=== PATIENT | female | born 1995 ===

== ENCOUNTER 2021-07-04 15:25 | Outpatient (REF) | payer OTHER, SELFPAY ==
[2021-07-04 16:01] LABS: MANUAL DIFF FLAG NO
[2021-07-04 16:06] LABS: Basophils Percent Auto 0.4 % (0-2); Eosinophils Absolute Auto 0.1 X10*3/uL (0.0-0.4); Eosinophils Percent Auto 0.9 % (0-4); Hematocrit 42.4 % (37-47); Hemoglobin 13.9 g/dl (12.0-16.0); Imm Gran Abs Auto 0.02 X10*3/uL (0.00-0.03); Imm Gran Pct Auto 0.3 % (0.0-0.4); Lymphocytes Percent Auto 29.5 % (20-40); Mean Corpuscular HGB Conc 32.8 g/dl (31.0-35.0); Mean Corpuscular Hemoglobin 26.2 pg (27.0-33.0); Mean Platelet Volume 10.2 fL (9.4-12.3); Monocytes Absolute Auto 0.6 X10*3/uL (0.1-1.2); Monocytes Percent Auto 8.8 % (2-11); Neutrophils Absolute Auto 4.1 X10*3/uL (2.0-8.3); Neutrophils Percent Auto 60.1 % (45-73); Platelet Count 339 X10*3/uL (160-400); Red Cell Distribution Width 12.7 % (11.0-16.0); White Blood Count 6.8 X10*3/uL (4.8-10.8)
[2021-07-04 16:26] LABS: Alanine Aminotransferase 6 U/L (0-31); Albumin Level 4.8 g/dL (3.5-5.0); Alkaline Phosphatase 71 U/L (39-117); Anion Gap 12 (12-20); Aspartate Amino Transferase 13 U/L (5-31); Bilirubin Total 0.8 mg/dL (0.0-1.0); Blood Urea Nitrogen 13 mg/dL (9-16); Calcium 10.2 mg/dL (8.4-10.2); Carbon Dioxide 27 mmol/L (22-29); Chloride 108 mmol/L (96-108); Cholesterol 128 mg/dL; Estimated Glomerular Filt Rate > 60; Glucose Fasting 90 mg/dL (60-99); HDL Cholesterol 43 mg/dL; LDL Cholesterol Calculated 75 mg/dl; Potassium 4.8 mmol/L (3.3-5.1); Sodium 142 mmol/L (135-145); Total Protein 7.7 g/dL (6.5-8.0); Triglycerides 54 mg/dL
[2021-07-11 04:50] LABS: Vitamin D 25-OH, D2 <4 ng/mL; Vitamin D 25-OH, D3 32 ng/mL; Vitamin D 25-OH, Total 32 ng/mL (30-100)
== END 2021-07-04 15:26 | disposition home or self-care (01) ==
LOC: HO.LAB 15:25
PROVIDERS: PCP Internal Medicine; Visit Provider Internal Medicine
DX: R63.6 Underweight (principal); E55.9 Vitamin D deficiency, unspecified; Z82.49 Family history of ischemic heart disease and other diseases of the circulatory system
CPT/HCPCS: 36415; 80053; 80061; 82306; 85025

== ENCOUNTER 2021-11-25 10:17 | Outpatient (REF) | payer OTHER, SELFPAY ==
[2021-11-25 13:26] LABS: C Reactive Protein 0.09 mg/dL (< or = 0.50)
[2021-11-28 12:46] LABS: Transglutaminase Ab IgG <1.0 U/mL; Transglutaminase IgA <1.0 U/mL
== END 2021-11-25 10:18 | disposition home or self-care (01) ==
LOC: HO.LAB 10:17
PROVIDERS: PCP Internal Medicine; Referring Provider Internal Medicine; Visit Provider Nurse Practitioner Family
DX: R10.11 Right upper quadrant pain (principal); K21.9 Gastro-esophageal reflux disease without esophagitis; K58.2 Mixed irritable bowel syndrome; R14.0 Abdominal distension (gaseous); K58.9 Irritable bowel syndrome, unspecified
CPT/HCPCS: 36415; 86140; 86364

== ENCOUNTER 2021-11-26 21:30 | Outpatient (REF) | payer OTHER, SELFPAY | END 2021-11-26 21:31 | disposition home or self-care (01) | LOC: HO.LNP 21:30 | PROVIDERS: Visit Provider Nurse Practitioner Family | DX: R10.13 Epigastric pain (principal); R19.7 Diarrhea, unspecified | CPT/HCPCS: 87338 ==

== ENCOUNTER 2021-12-27 14:26 | Outpatient (REF) | payer OTHER, SELFPAY ==
[2021-12-27 16:23] LABS: Alanine Aminotransferase < 6 U/L (0-31); Albumin Level 4.5 g/dL (3.5-5.0); Alkaline Phosphatase 76 U/L (39-117); Aspartate Amino Transferase 12 U/L (5-31); Bilirubin Direct 0.2 mg/dL (0.0-0.5); Bilirubin Total 0.4 mg/dL (0.0-1.0); Lipase 12 U/L (8-78); Total Protein 7.3 g/dL (6.5-8.0)
[2021-12-27 16:38] LABS: TSH reflex Free T4 0.59 uIU/mL (0.32-4.0)
[2021-12-27 16:45] LABS: Vitamin B12 398 pg/mL (200-900)
[2021-12-31 14:25] LABS: Vitamin D 25-OH, D2 <4 ng/mL; Vitamin D 25-OH, D3 13 ng/mL; Vitamin D 25-OH, Total 13 ng/mL (30-100)
== END 2021-12-27 14:27 | disposition home or self-care (01) ==
LOC: HO.LAB 14:26
PROVIDERS: PCP Internal Medicine; Visit Provider Nurse Practitioner Family
DX: R19.7 Diarrhea, unspecified (principal); E55.9 Vitamin D deficiency, unspecified
CPT/HCPCS: 36415; 80076; 82306; 82607; 82746; 83690; 84443

== ENCOUNTER 2021-12-30 12:33 | Outpatient (REF) | payer OTHER, SELFPAY ==
[2022-01-05 23:31] LABS: Pancreatic Elastase-1 >500 mcg/g
== END 2021-12-30 12:34 | disposition home or self-care (01) ==
LOC: HO.LNP 12:33
PROVIDERS: Visit Provider Nurse Practitioner Family
DX: R19.7 Diarrhea, unspecified (principal); K21.9 Gastro-esophageal reflux disease without esophagitis
CPT/HCPCS: 82656; 87338

== ENCOUNTER → 2022-01-06 09:02 | Outpatient (BNVA) | payer OTHER, SELFPAY | PROVIDERS: PCP Internal Medicine; Referring Provider Internal Medicine; Visit Provider Nurse Practitioner Family ==

== ENCOUNTER 2022-02-01 10:51 | Day surgery (SDC) | payer OTHER, SELFPAY ==
[2022-01-27 14:55] VITALS: BMI 21.5
--- NOTE | 2022-01-31 12:27 | HO.ANESPROP2 ---
Documented by User: Elizabeth Gonzalez NP 01/31/22 12:27 HPI - Anesthesia Eval Consult details Narrative: 26yo F for Upper Endoscopy [facility] Active Problems Active Problems: All Active Problems (Updated 07/05/21 @ 10:09 by Dulce Flores MD) GERD (gastroesophageal reflux disease) (Acute) Family history of hypertension (Acute) Underweight (Acute) Allergic rhinitis (Acute) Past Medical History Medical History Allergic rhinitis Family history of hypertension GERD (gastroesophageal reflux disease) Underweight Family History Family History Mother No problems noted. Father Asthma Maternal Grandfather Essential hypertension Social History Social History Housing: House Alcohol intake: current Alcohol intake frequency: holidays/special occasions only Alcohol type: beer, wine and hard liquor Patient Tobacco Use Status: Never used Tobacco e-Cigarette/Vaping Use: Never Used Use of substances other than those prescribed or required for medical reasons: No Are you DNR?: No Advance Directives: No Advance Directives Information Provided: Yes Patient : No ([employer] pending) service: No Current occupational status: employed Meds Allergies Allergy/AdvReac Type Severity Reaction Status Date / Time No Known Allergies Allergy Verified 01/06/22 09:08 Exam Exam Date and Time: January 31, 2022 1227 Height,Weight and Vital Signs: Height 5 ft 2 in Weight 53.524 kg Assessment and Plan Assessment Anesthesia Assessment: Chart Reviewed Documented by User: Clementina Cornejo MD 02/01/22 12:20 [facility] Past Medical History Medical History Allergic rhinitis Family history of hypertension GERD (gastroesophageal reflux disease) Underweight Family History Family History Mother No problems noted. Father Asthma Maternal Grandfather Essential hypertension Family history of problems with anesthesia: No Surgical History History of Problems with Anesthesia: No Social History Social History Housing: House Alcohol intake: current Alcohol intake frequency: holidays/special occasions only Alcohol type: beer, wine and hard liquor Patient Tobacco Use Status: Never used Tobacco e-Cigarette/Vaping Use: Never Used Use of substances other than those prescribed or required for medical reasons: No Are you DNR?: No Advance Directives: No Advance Directives Information Provided: Yes Patient : No ([employer] pending) service: No Current occupational status: employed Meds Allergies Allergy/AdvReac Type Severity Reaction Status Date / Time No Known Allergies Allergy Verified 01/06/22 09:08 Exam Airway Mallampati Class: II TM Dist: >3cm Neck ROM: Full Heart: rrr Lungs: cta Assessment and Plan Assessment Anesthesia Assessment: Anesthesia Plan Discussed and Chart Reviewed Final Anesthetic Review Family History of Problems with Anesthesia: No History of Problems with Anesthesia: No NPO: Yes ASA Class: II Final Preanesthetic Review: No Changes in Pt Med Stat, Meds/Allgs Chart Reviewed and Consent Obtained/Reviewed Patient Risk: Intermediate Procedure Risk: Intermediate Anesthetic Plan Anesthetic Plan: MAC: Disposition: Standard PACU
[2022-02-01 11:55] LABS: UPreg QC Valid YES; Urine Pregnancy NEGATIVE (NEGATIVE)
[2022-02-01 11:59] VITALS: BP 114/74; PULSE 73; RESP 16; TEMP 36.9; O2SAT 99; BMI 21.9
--- NOTE | 2022-02-01 12:16 | P.HPSUR_ITS ---
Pre-Procedural Eval Section A Date of Service: 02/01/22 Section B Chief Complaint: GERD Details of Present Illness: hx of early satiety, daily migraines and post prandial diarrhea with reflux Relevant Family History (Specify if Yes): No Relevant Social History: None Present Medications: see Short Stay Collaborative assessment Medical History: Significant History (Allergic rhinitis Family history of hypertension GERD (gastroesophageal reflux disease) Underweight) History of Previous Operations: No relevant previous surgery Allergies: Allergies Allergy/AdvReac Type Severity Reaction Status Date / Time No Known Allergies Allergy Verified 01/06/22 09:08 Review of Systems Sugical H&P ROS: Negative: Constitution, Cardiovascular, Respiratory, Neurological, Psychiatric, Hem-Onc, Allergic/Immunologic, Gastrointestinal, Genitourinary, Musculoskeletal, Integumentary, Endocrine and Eyes/Ears/Nose/Throat Exam Surgical H&P Exam: Normal: HEENT, Normal: Heart, Normal: Lungs, Normal: Extr emities, Normal: Abdomen, Normal: Skin and Normal: Neurological Plan Diagnosis/Plan: Unchanged I have reviewed the history and physical and performed a pertinent physical examination on my patient. No changes have occurred unless specified.
[2022-02-01] MEDS: Lactated Ringers 1,000 ML 100 ML IVCONT (12:20)
--- NOTE | 2022-02-01 12:25 | PM.OP ---
Brief Operative Note Date of Service: 02/01/22 Pre-op diagnosis: hx of early satiety, daily migraines and post prandial diarrhea with reflux Post-op diagnosis: same Procedure: see op note Surgeon: Jim Jin MD Anesthesia: MAC Was an Clarifier Operator used for this Procedure?: No Estimated blood loss (mL): 0 Condition: stable Disposition: PACU
--- NOTE | 2022-02-01 12:25 | W.PM.OPN ---
Operative Note Operative Note Date of Service: 02/01/22 Narrative: Procedure Description: EGD Indication: hx of early satiety, daily migraines and post prandial diarrhea with reflux Anesthesia: MAC FLEXIBLE TRANSORAL UPPER GASTROINTESTINAL ENDOSCOPY UPPER ENDOSCOPY Consent: Indications for the procedure and potential complications of bleeding, perforation, reaction to medications and missed diagnosis were discussed with the patient and informed consent was obtained. Instrument: Olympus GIF H 190 J mid size upper endoscope Monitoring: Vital signs and clinical assessment, continuous EKG monitoring, Pulse oximetry, Carbon Dioxide monitoring and blood pressure monitoring were done throughout the procedure. Procedure: The patient was placed in the left lateral decubitis position and pre-procedure medications were administered and a bite block was placed. The endoscope was inserted into the mouth and advanced under direct vision to the third part of duodenum. A careful inspection was made as the upper endoscope was withdrawn including a retroflexed examination of the proximal stomach; Findings and interventions are described below. Findings: Larynx:normal Esophagus: GE junction at 38 cm, diaphragm hiatus at 38 cm, mild esophagitis, bx taken from GEJ and random esophagus in different jars Stomach: Normal mucosa. Biopsies were obtained. Grade 2 flap valve on retroflexed examination of the cardia. There appeared to be reduced gastric movement. Duodenum: Normal bulb and descending duodenum, bx taken Intervention: Biopsies as noted above Impression/Findings: possible gastroparesis, mild esophagitis PLAN: await bx, if h pylori pos treat if neg then gastric emptying study nortriptiline may be a good option if turns out to functional dyspepsia or gastroparesis as will help her migraines as well as her sleep
[2022-02-01 13:27] VITALS: BP 98/57; PULSE 83; RESP 16; TEMP 36.6; O2SAT 95
[2022-02-01 13:42] VITALS: BP 106/72; PULSE 78; RESP 16; O2SAT 100
[2022-02-01 13:57] VITALS: BP 103/70; PULSE 73; RESP 16; TEMP 36.6; O2SAT 100
== END 2022-02-01 14:30 | disposition home or self-care (01) ==
PROVIDERS: Nurse Practitioner; PCP Internal Medicine; Visit Provider Internal Medicine Gastroenterology
PROC: 0DJ08ZZ Inspection of Upper Intestinal Tract, Via Natural or Artificial Opening Endoscopic (ICD-10-PCS; CPT 43235; principal; 2022-02-01 13:10)
DX: K21.9 Gastro-esophageal reflux disease without esophagitis (principal); R68.81 Early satiety; K20.90 Esophagitis, unspecified without bleeding; R19.7 Diarrhea, unspecified; K44.9 Diaphragmatic hernia without obstruction or gangrene; G43.909 Migraine, unspecified, not intractable, without status migrainosus
CPT/HCPCS: 43239; 81025; 88305; 88342

== ENCOUNTER → 2022-02-17 13:00 | Outpatient (BNVA) | payer OTHER, SELFPAY | PROVIDERS: PCP Internal Medicine; Referring Provider Internal Medicine; Visit Provider Nurse Practitioner Family | DX: Z13.89 Encounter for screening for other disorder (principal) ==

== ENCOUNTER 2022-02-27 08:58 | Outpatient (REF) | payer OTHER, SELFPAY ==
[2022-02-28 14:58] LABS: H Pylori Breath Test Negative (Negative)
== END 2022-02-27 08:59 | disposition home or self-care (01) ==
LOC: HO.LAB 08:58
PROVIDERS: PCP Internal Medicine; Referring Provider Internal Medicine; Visit Provider Internal Medicine Gastroenterology
DX: K21.00 Gastro-esophageal reflux disease with esophagitis, without bleeding (principal)
CPT/HCPCS: 36415; 83013

== ENCOUNTER 2022-03-13 11:01 | Emergency (ER) | payer OTHER, SELFPAY ==
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
[2022-03-13 11:08] VITALS: BP 118/70; PULSE 90
[2022-03-13 11:22] VITALS: BP 128/87; PULSE 90; RESP 18; TEMP 36.6; O2SAT 98; BMI 22.6
[2022-03-13] MEDS: Acetaminophen 325 MG TABLET 975 MG PO (11:52)
[2022-03-13] MEDS: Cyclobenzaprine HCl 10 MG TABLET PO (11:52)
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
== END 2022-03-13 14:05 | disposition home or self-care (01) ==
PROVIDERS: Emergency Provider Emergency Medicine; PCP Internal Medicine
DX: S13.4XXA Sprain of ligaments of cervical spine, initial encounter (principal); S06.0X9A Concussion with loss of consciousness of unspecified duration, initial encounter; S86.912A Strain of unspecified muscle(s) and tendon(s) at lower leg level, left leg, initial encounter; S86.911A Strain of unspecified muscle(s) and tendon(s) at lower leg level, right leg, initial encounter; S00.83XA Contusion of other part of head, initial encounter; V43.62XA Car passenger injured in collision with other type car in traffic accident, initial encounter; Y93.9 Activity, unspecified; Y92.410 Unspecified street and highway as the place of occurrence of the external cause; Y99.9 Unspecified external cause status
CPT/HCPCS: 70450; 70486; 72125; 73564; 73590; 99284

== ENCOUNTER → 2022-08-03 07:50 | Outpatient (REF) | payer OTHER, SELFPAY ==
--- NOTE | ~2022-08-03 | NM_ITS ---
EXAMINATION: IA RADIONUCLIDE SOLID FOOD GASTRIC EMPTYING 4-HOUR STUDY CLINICAL INFORMATION: Mastitis, unspecified, without bleeding. COMPARISON: None TECHNIQUE: A standard meal consisting of 4 oz of Egg Beaters brand tagged with 1000 microcuries Tc-99m Sulfur Colloid, 8 oz water and 2 slices of toast with jelly was administered orally to the patient. Images were obtained using a dual head gamma camera in the anterior and posterior projections over of the stomach immediately post ingestion and at hourly intervals up to 4 hours post ingestion. The anterior and posterior counts at each time interval were averaged using the geometric mean and expressed as percentage of the immediate post ingestion counts. FINDINGS: There is good visualization of activity in the stomach immediately post ingestion. As the study progresses, there is good clearance of activity from the stomach and visualization of progressively increasing small bowel activity. By the end of the study, there is almost no retention noted in the stomach. Retention in the stomach at each time interval was: 1 hour 59% (normal 37%-90%) 2 hours 23% (normal 30%-60%) 3 hours 5% Given the lack of radiotracer activity by 3 hours, 4 hours images were not obtained. IA/IA gastric emptying study IMPRESSION: Normal 4-hour solid food gastric emptying study.
== END ==
LOC: HO.NUCMED 07:50
PROVIDERS: Visit Provider Nurse Practitioner Family
DX: K29.70 Gastritis, unspecified, without bleeding (principal)
CPT/HCPCS: 78264; A9541

== ENCOUNTER 2023-01-18 10:39 | Outpatient (REF) | payer OTHER, SELFPAY ==
[2023-01-18 11:02] LABS: MANUAL DIFF FLAG NO
[2023-01-18 12:16] LABS: Basophils Absolute Auto 0.1 X10*3/uL (0.0-0.2); Basophils Percent Auto 0.9 % (0-2); Eosinophils Absolute Auto 0.2 X10*3/uL (0.0-0.4); Eosinophils Percent Auto 2.2 % (0-4); Hematocrit 45.6 % (37.0-47.0); Hemoglobin 14.6 g/dl (12.0-16.0); Imm Gran Abs Auto 0.01 X10*3/uL (0.00-0.03); Imm Gran Pct Auto 0.1 % (0.0-0.4); Lymphocytes Percent Auto 29.3 % (20-40); Mean Corpuscular Volume 81.3 fL (80.0-98.0); Mean Platelet Volume 10.4 fL (9.4-12.3); Monocytes Absolute Auto 0.6 X10*3/uL (0.1-1.2); Monocytes Percent Auto 8.2 % (2-11); Neutrophils Percent Auto 59.3 % (45-73); Platelet Count 376 X10*3/uL (160-400); Red Blood Count 5.61 X10*6/uL (4.20-5.50); White Blood Count 6.7 X10*3/uL (4.8-10.8)
[2023-01-18 13:01] LABS: Alanine Aminotransferase 6 U/L (0-31); Albumin Level 4.7 g/dL (3.5-5.0); Alkaline Phosphatase 80 U/L (39-117); Anion Gap 14 (12-20); Aspartate Amino Transferase 14 U/L (5-31); Bilirubin Total 0.7 mg/dL (0.0-1.0); Blood Urea Nitrogen 9 mg/dL (9-16); Calcium 9.2 mg/dL (8.4-10.2); Carbon Dioxide 27 mmol/L (22-29); Chloride 106 mmol/L (96-108); Estimated Glomerular Filt Rate > 60; Glucose Fasting 93 mg/dL (60-99); Potassium 4.7 mmol/L (3.3-5.1); Sodium 142 mmol/L (135-145); Total Protein 7.4 g/dL (6.5-8.0)
[2023-01-18 13:15] LABS: Folate 14.8 ng/mL (> or = 4.0); TSH reflex Free T4 1.21 uIU/mL (0.32-4.0); Vitamin B12 433 pg/mL (200-900); Vitamin D 25-OH Total 12.6 ng/mL (>30)
== END 2023-01-18 10:40 | disposition home or self-care (01) ==
LOC: HO.LAB 10:39
PROVIDERS: PCP Internal Medicine; Visit Provider Nurse Practitioner Family
DX: Z00.00 Encounter for general adult medical examination without abnormal findings (principal); E55.9 Vitamin D deficiency, unspecified; J45.909 Unspecified asthma, uncomplicated; K21.9 Gastro-esophageal reflux disease without esophagitis; R63.6 Underweight; J30.9 Allergic rhinitis, unspecified; Z82.49 Family history of ischemic heart disease and other diseases of the circulatory system
CPT/HCPCS: 36415; 80053; 82306; 82607; 82746; 84443; 85025

== ENCOUNTER → 2023-01-22 08:57 | Outpatient (BNVA) | payer OTHER, SELFPAY | PROVIDERS: PCP Internal Medicine; Visit Provider Nurse Practitioner Family | DX: Z13.89 Encounter for screening for other disorder (principal) ==

== ENCOUNTER → 2023-04-16 14:10 | Outpatient (BNVA) | payer OTHER, SELFPAY | PROVIDERS: PCP Internal Medicine; Referring Provider Internal Medicine; Visit Provider Nurse Practitioner Family ==

== ENCOUNTER 2023-09-18 14:04 | Outpatient (AMB) | payer OTHER, SELFPAY ==
[2023-09-18 14:07] VITALS: BP 122/76; PULSE 81; BMI 25.3
--- NOTE | 2023-09-18 14:07 | A.OFFVIS_ITS ---
Intake Vital Signs 09/18/23 14:07 Height 5 ft 1 in Weight 134 lb 0.657 oz BMI 25.3 BP 122/76 Blood Pressure Location Rt brachial Position Sitting Pulse 81 Pulse Source Pulse Oximeter Intake Visit Reasons: pt req appointment Intake Note: Pt presents to the office today for stomach pain that has been getting worse within the past month. Pt states her acid reflux is getting worse. Pt also states lately within the past week she has been having diarrhea but even before that she states she is constantly in the bathroom. Pt states it is hard for her to even lay on her stomach because of the pain. She states she has tried the low FODMAP diet and she states it helped a little but didnt make a big difference. Allergies No Known Allergies Allergy (Verified 09/18/23 14:09) HPI pt req appointment HPI Details LAST VISIT GERD (gastroesophageal reflux disease) Discussed with patient avoiding dietary triggers and late night snacking. Staying upright for minimal 3 hours after meals discussed with patient. Patient was also encouraged to eat smaller meals and more often. IBS (irritable bowel syndrome) Patient reports occasional abdominal cramping. Discussed with patient will FOD MAP diet. Patient will try to eat smaller meals. Avoid pasta and see if that is going to make a difference. Discussed with patient also the importance of emptying her bowels completely to prevent abdominal cramping and bloating. I will see patient in 6 months, sooner on as needed basis. Patient is agreeable to this plan and verbalizes understanding of instructions. She was given the opportunity to ask questions and all questions answered. ? Thank you for allowing me to participate in her care Plan Medications Refilled cholecalciferol (vitamin D3) 50 mcg PO DAILY 90 tabs 0RF R79.89 - Other specified abnormal findings of blood chemistry TODAY'S VISIT: Patient is here today for follow-up. Patient reports that she has continues to have postprandial loose stools. Patient reports abdominal bloating. Patient states that when she tried to change her diet felt some a results, patient reports that she is having loose stools, however she feels like she is not emptying completely. Occasional symptoms of constipation as well. Patient denies any melena, hematochezia, unintentional weight loss or ribbon like stools. Patient reports family history of colitis. Patient reports epigastric discomfort with dyspepsia without dysphagia or odynophagia. Patient reports that she tries dicyclomine on as needed basis, feels like it helps but not always. Patient denies any nausea or vomiting. Denies any fever or chills. Denies any other GI concerning symptoms. [facility] Medical History GERD (gastroesophageal reflux disease) Family history of hypertension Underweight Allergic rhinitis Family History Mother No problems noted. Father Asthma Maternal Grandfather Essential hypertension Housing: House Alcohol intake: current Alcohol intake frequency: holidays/special occasions only Alcohol type: beer, wine and hard liquor Patient Tobacco Use Status: Never used Tobacco e-Cigarette/Vaping Use: Never Used service: No Current occupational status: employed Cognitive needs: No Hearing needs: No Vision needs: No Review of Systems Const Denies weight gain and Denies weight loss ENT Reports no additional complaints, Denies dysphagia and Denies odynophagia Card Reports no additional complaints Resp Reports no additional complaints GI Reports abdominal pain, Denies belching, Denies melena, Reports bloating, Denies change in bowel habits, Reports constipation, Denies dysphagia, Denies excessive flatus, Denies dyspepsia, Reports heartburn, Denies diarrhea, Reports loose stools, Denies nausea, Denies odynophagia and Denies vomiting Reports no additional complaints Musc Reports no additional complaints Neuro Reports no additional complaints Psych Reports no additional complaints Endo Reports no additional complaints Physical Exam Vital Signs: Last Vital Signs Pulse 81 09/18/23 14:07 BP 122/76 09/18/23 14:07 BMI result Body Mass Index 25.3 Const General: healthy appearing, no acute distress and well developed Nutritional Appearance: well nourished Orientation/consciousness: patient oriented x3 HEENT Head: Yes normal to inspection, Yes normocephalic and Yes atraumatic Face and sinus: Yes normal facial exam Mouth: Normal oral and palatal mucosa present Throat: Yes posterior oropharynx normal, Yes tonsils normal and Yes uvula midline Eyes General: appearance normal, both eyes and all related structures Neck Neck: Yes normal visual inspection, Yes full ROM and Yes trachea midline Thyroid: Thyroid normal Resp Effort & Inspection: normal respiratory effort, able to speak in complete sentences, no tracheal deviation and symmetric chest movement Auscultation: clear to auscultation bilaterally Cardio Rate: regular rate Heart sounds: S1 normal heart sound present and S2 normal heart sound present GI Inspection: Yes normal to inspection and No distended Palpation (GI): Soft to palpation, not firm, nontender and No hepatosplenomegaly present Auscultation: normal bowel sounds General: Yes no CVA tenderness Back/Spine/Pelvis Back: no CVA tenderness Skin General skin exam: elasticity normal, turgor normal and dry skin Neuro General: patient oriented x3 Psych Appearance: grossly normal Mental Status: mental status grossly normal Affect: normal affect Assessment & Plan Assessment & Plan (1) Diarrhea: Code(s): R19.7 - Diarrhea, unspecified Qualifiers: Diarrhea type: functional diarrhea Qualified Code(s): K59.1 - Functional diarrhea (2) Abdominal distension: Code(s): R14.0 - Abdominal distension (gaseous) (3) Postprandial abdominal bloating: Code(s): R14.0 - Abdominal distension (gaseous) (4) Family history of colitis: Code(s): Z83.79 - Family history of other diseases of the digestive system Plan Will check calprotectin to rule out colitis, Crohn's. Patient can start taking Citrucel 2 tablets daily and take to senna every evening. Patient will also st art taking Nexium in the morning half an hour before breakfast. Discussed with patient low FODMAP diet. Patient will also avoid other dietary triggers. Avoid coffee, spicy food. Staying upright for minimum 3 hours after meals discussed with patient. Eating smaller meals and more often. I will see patient in 4 months, sooner on as needed basis. If calprotectin positive patient will need to go for colonoscopy and upper endoscopy. She is agreeable to plan and verbalizes understanding of instructions. She was given the opportunity to ask questions and all questions answered. Thank you for allowing me to participate in her care. Orders: Orders Calprotectin, Fecal 09/18/23 R19.7 - Diarrhea, unspecified, R14.0 - Abdominal distension (gaseous), Z83.79 - Family history of other diseases of the digestive system Medications: New sennosides (Natural Senna Laxative) 17.2 mg (2 x 8.6 mg) PO BEDTIME 60 tabs 3RF constipation K59.00 - Constipation, unspecified esomeprazole magnesium (Nexium) 40 mg PO DAILY 30 caps 5RF K21.9 - Gastro- esophageal reflux disease without esophagitis Changed From methylcellulose (laxative) take it with full glass of water 1,000 mg (2 x 500 mg) PO DAILY 60 tabs 2RF K59.00 - Constipation, unspecified To methylcellulose (laxative) (Citrucel) take it with full glass of water 1,000 mg (2 x 500 mg) PO DAILY 60 tabs 2RF K59.00 - Constipation, unspecified Coding Level of Care Code Est Pt Level 4 (30204) Diagnoses Functional diarrhea K59.1 Diarrhea type: functional diarrhea Abdominal distension R14.0 Postprandial abdominal bloating R14.0 Family history of colitis Z83.79 Time Spent (min) 35 Comment 20 minutes spent with patient and additional 15 minutes spent reviewing her records
== END 2023-09-18 15:05 | disposition home or self-care (01) ==
PROVIDERS: PCP Internal Medicine; Visit Provider Nurse Practitioner Family
DX: K59.1 Functional diarrhea (principal); R14.0 Abdominal distension (gaseous); Z83.79 Family history of other diseases of the digestive system
CPT/HCPCS: 99214

== ENCOUNTER → 2023-09-18 14:04 | Outpatient (BNVA) | payer OTHER, SELFPAY | PROVIDERS: PCP Internal Medicine; Visit Provider Nurse Practitioner Family ==

== ENCOUNTER 2023-10-08 15:09 | Outpatient (REF) | payer OTHER, SELFPAY | END 2023-10-08 15:10 | disposition home or self-care (01) | LOC: HO.LAB 15:09 | PROVIDERS: PCP Internal Medicine; Visit Provider Nurse Practitioner Family | DX: Z13.89 Encounter for screening for other disorder (principal) ==

== ENCOUNTER 2023-10-11 12:15 | Outpatient (REF) | payer OTHER, SELFPAY ==
[2023-10-19 00:29] LABS: Calprotectin, Fecal 27 mcg/g
== END 2023-10-11 12:16 | disposition home or self-care (01) ==
LOC: HO.LNP 12:15
PROVIDERS: Visit Provider Nurse Practitioner Family
DX: R19.7 Diarrhea, unspecified (principal); R14.0 Abdominal distension (gaseous); Z83.79 Family history of other diseases of the digestive system
CPT/HCPCS: 83993

== ENCOUNTER 2023-11-21 08:55 | Outpatient (AMB) | payer BC, SELFPAY ==
--- NOTE | 2023-11-21 09:14 | MHC.OFFWIV ---
Intake Vital Signs 11/21/23 09:15 Height 5 ft 1 in Weight 135 lb BMI 25.5 BP 116/76 Blood Pressure Location Lt brachial Position Sitting Pulse 93 Pulse Source Pulse Oximeter Temp 97.9 F Temp Source Temporal Artery Scan Pulse Oximetry (%) 97 Oxygen Delivery Method Room Air Intake Visit Reasons: EST/right side back pain (lobby) Intake Note: pt is here today for rt side back pain started 3 days ago Patient Tobacco Use Status: Never used Tobacco Allergies No Known Allergies Allergy (Verified 11/21/23 09:15) Do you need a note to return to daycare/school/sports/work: No HPI EST/right side back pain (lobby) HPI Details This is a 28 year old female patient who presents today with a 3-4 day history of right sided mid/upper back pain. She states it is constantly sore/stabbing and is now radiating around her right side under her armpit. She states areas are tender to touch. She denies any: fever, chills, shortness of breath, cough, recent illness or abdominal pain. Denies any recent injuries or lifting/exertion which may have caused this. Denies any urinary symptoms. She has been using a heating pad and Tylenol, and icy-hot without relief. [facility] Medical History GERD (gastroesophageal reflux disease) Family history of hypertension Underweight Allergic rhinitis Family History Mother No problems noted. Father Asthma Maternal Grandfather Essential hypertension Social History Housing: House Alcohol intake: current Alcohol intake frequency: holidays/special occasions only Alcohol type: beer, wine and hard liquor Patient Tobacco Use Status: Never used Tobacco e-Cigarette/Vaping Use: Never Used service: No Current occupational status: employed Cognitive needs: No Hearing needs: No Vision needs: No Review of Systems Const All systems reviewed & are unremarkable except as noted in HPI and below Physical Exam Vital Signs: Last Vital Signs Temp 97.9 F 11/21/23 09:15 Pulse 93 11/21/23 09:15 BP 116/76 11/21/23 09:15 Pulse Ox 97 01/17/24 09:15 Oxygen Delivery Method Room Air 11/21/23 09:15 BMI result Body Mass Index 25.5 Const General: cooperative and no acute distress HEENT Head: Yes normal to inspection and Yes normocephalic Ears: hearing grossly normal bilaterally Neck Neck: Yes no lymphadenopathy Resp Effort & Inspection: normal respiratory effort and able to speak in complete sentences Auscultation: clear to auscultation bilaterally Cardio Jugular venous distension: no JVD Palpation: normal PMI Rate: regular rate Rhythm: regular rhythm GI Inspection: Yes normal to inspection Palpation (GI): Soft to palpation (nontender to palp) Auscultation: normal bowel sounds General: Yes bladder normal to palpation and Yes no CVA tenderness Bimanual exam- vagina & uterus: bladder normal to palpation Back/Spine/Pelvis Back: no CVA tenderness Skin General skin exam: no rashes or lesions noted Neuro General: gait normal, no focal motor deficits and deep tendon reflexes 2+ bilaterally Extrem Other: patient has muscular tenderness to palpation over right rhomboids and right lastissimus dorsi - this wraps to lateral right pectoral muscle. General: Yes capillary refill normal and Yes no clubbing, cyanosis or edema Psych Appearance: grossly normal Mental Status: mental status grossly normal Speech and movement: Normal speech and movement present Results AMB Urinalysis, Automated UA Leukoctes 15 Gopal/uL Last Edit by Bianca Quarles CMA on 11/21/23 10:36 UA Nitrite Negative Last Edit by Bianca Quarles CMA on 11/21/23 10:36 UA Urobilinogen 0.2 mg/dL Last Edit by Bianca Quarles CMA on 11/21/23 10:36 UA Protein 0 mg/dL Last Edit by Bianca Quarles CMA on 11/21/23 10:36 UA pH 6.0 Last Edit by Bianca Quarles CMA on 11/21/23 10:36 UA Blood 0 Leonardo/uL Last Edit by Bianca Quarles CMA on 11/21/23 10:36 UA Specific [place] 1.015 Last Edit by Bianca Quarles CMA on 11/21/23 10:36 UA Ketone Positive Last Edit by Bianca Quarles CMA on 11/21/23 10:36 UA Bilirubin 0 mg/dL Last Edit by Bianca Quarles CMA on 11/21/23 10:36 UA Glucose 0 mg/dL Last Edit by Bianca Quarles CMA on 11/21/23 10:36 Assessment & Plan Assessment & Plan (1) Rib pain on right side: Code(s): R07.81 - Pleurodynia Plan: CXR was normal, urine dip was normal. Exam aside from muscular tenderness is otherwise unremarkable. We discussed treatment options and patient agrees with conservative measures with NSAIDs, muscle relaxers, and ongoing gentle stretching, heat application, and topical icy-hot as needed. We reviewed indication, use, possible side effects of medications. We also discussed at length the indications to return to the clinic or seek emergency room care, including any development of shortness of breath, fever/chills, worsening of pain, palpitations, dizziness, abdominal pain or urinary symptoms. She verbalizes understanding and agrees to plan Orders: Orders XR chest 2V Today R07.81 - Pleurodynia AMB Urinalysis Automated Today Z13.9 - Encounter for screening, unspecified Medications: New meloxicam 15 mg PO DAILY 7 tabs 0RF 7 days R07.81 - Pleurodynia cyclobenzaprine Take up to 3 times daily as needed for muscle pain/spasms. 10 mg PO TID PRN 20 tabs 0RF muscle spasm S29.012A - Strain of muscle and tendon of back wall of thorax, initial encounter Coding Level of Care Code Est Pt Level 4 (63188) Diagnoses Rib pain on right side R07.81
[2023-11-21 09:15] VITALS: BP 116/76; PULSE 93; TEMP 36.6; O2SAT 97; BMI 25.5
== END 2023-11-21 10:58 | disposition home or self-care (01) ==
PROVIDERS: PCP Internal Medicine; Visit Provider Nurse Practitioner Family
DX: R07.81 Pleurodynia (principal); Z13.9 Encounter for screening, unspecified
CPT/HCPCS: 81003; 99214

== ENCOUNTER 2023-11-21 09:48 | Outpatient (REF) | payer BC, SELFPAY ==
--- NOTE | ~2023-11-21 | XR_ITS ---
EXAMINATION: XR CHEST CLINICAL INFORMATION: Pleurodynia. Right-sided chest and rib pain. COMPARISON: Chest x-ray 12/14/2015 TECHNIQUE: 2 views of the chest were obtained. FINDINGS: No significant abnormality is noted involving the heart, lungs, mediastinum, bony thorax or soft tissues. XR/XR chest 2V IMPRESSION: Unremarkable chest exam
== END 2023-11-21 09:49 | disposition home or self-care (01) ==
LOC: HO.HMGCX 09:48
PROVIDERS: PCP Internal Medicine; Visit Provider Nurse Practitioner Family
DX: R07.81 Pleurodynia (principal)
CPT/HCPCS: 71046

== ENCOUNTER 2023-12-06 14:01 | Outpatient (REF) | payer BC, SELFPAY ==
[2023-12-06 17:34] LABS: MANUAL DIFF FLAG NO
[2023-12-06 17:38] LABS: Basophils Absolute Auto 0.1 X10*3/uL (0.0-0.2); Basophils Percent Auto 0.7 % (0-2); Eosinophils Absolute Auto 0.1 X10*3/uL (0.0-0.4); Eosinophils Percent Auto 1.5 % (0-4); Hematocrit 43.4 % (37.0-47.0); Hemoglobin 14.3 g/dl (12.0-16.0); Imm Gran Abs Auto 0.03 X10*3/uL (0.00-0.03); Imm Gran Pct Auto 0.3 % (0.0-0.4); Lymphocytes Absolute Auto 2.8 X10*3/uL (1.2-4.9); Lymphocytes Percent Auto 29.5 % (20-40); Mean Corpuscular HGB Conc 32.9 g/dl (31.0-35.0); Mean Corpuscular Hemoglobin 26.2 pg (27.0-33.0); Mean Corpuscular Volume 79.5 fL (80.0-98.0); Mean Platelet Volume 9.8 fL (9.4-12.3); Monocytes Absolute Auto 0.6 X10*3/uL (0.1-1.2); Monocytes Percent Auto 6.7 % (2-11); Neutrophils Absolute Auto 5.9 x10*3/uL (2.0-8.3); Neutrophils Percent Auto 61.3 % (45-73); Platelet Count 451 X10*3/uL (160-400); Red Blood Count 5.46 X10*6/uL (4.20-5.50); Red Cell Distribution Width 12.8 % (11.0-16.0); White Blood Count 9.6 X10*3/uL (4.8-10.8)
[2023-12-06 18:03] LABS: Alanine Aminotransferase 20 U/L (0-31); Albumin Level 4.6 g/dL (3.5-5.0); Alkaline Phosphatase 93 U/L (39-117); Anion Gap 13 (12-20); Aspartate Amino Transferase 20 U/L (5-31); Bilirubin Total 0.4 mg/dL (0.0-1.0); Blood Urea Nitrogen 10 mg/dL (9-16); Calcium 9.3 mg/dL (8.4-10.2); Carbon Dioxide 24 mmol/L (22-29); Chloride 105 mmol/L (96-108); Estimated Glomerular Filt Rate > 60; Glucose Random 96 mg/dL (60-115); Iron 96 mcg/dL (30-160); Percent Iron Saturation 35 % (15-50); Potassium 3.4 mmol/L (3.3-5.1); Sodium 139 mmol/L (135-145); Total Iron Binding Capacity 272 mcg/dL (228-428); Total Protein 7.7 g/dL (6.5-8.0); Unsaturated Iron Binding 176 ug/dL
[2023-12-06 18:19] LABS: Ferritin 110 ng/mL (10-122); TSH reflex Free T4 0.99 uIU/mL (0.32-4.0); Vitamin D 25-OH Total 30.6 ng/mL (>30)
[2023-12-07 08:00] LABS: Syphilis Screen Nonreactive (Nonreactive)
[2023-12-07 08:23] LABS: HBsAGNum1 0.67 S/CO (0.00-0.99); HIV AB/AG Nonreactive (Nonreactive); HIV Num 1 0.05 S/CO (0.00-0.99); Hepatitis B Surface Antigen Negative (Negative); ~HepC Num1 0.16 S/CO (0.00-0.79); ~Hepatitis C Antibody Nonreactive (Nonreactive)
[2023-12-07 18:03] LABS: Varicella IgG Antibody <135.00 index
[2023-12-07 22:44] LABS: Rubella IgG Antibody <0.90 Index
== END 2023-12-06 14:02 | disposition home or self-care (01) ==
LOC: HO.CHCLDS 14:01
PROVIDERS: Visit Provider Family Medicine
DX: Z31.69 Encounter for other general counseling and advice on procreation (principal); R53.83 Other fatigue
CPT/HCPCS: 36415; 80053; 82306; 82728; 83540; 84443; 85025; 86762; 86780; 86787; 86803; 87340; 87389

== ENCOUNTER 2023-12-14 11:09 | Outpatient (REF) | payer BC, SELFPAY ==
[2023-12-17 13:19] LABS: Hemoglobin 14.4 g/dL (11.7-15.5); MCH 26.5 pg (27.0-33.0); RBC 5.43 Million/uL (3.80-5.10)
== END 2023-12-14 11:10 | disposition home or self-care (01) ==
LOC: HO.CHCLDS 11:09
PROVIDERS: Visit Provider Family Medicine
DX: R71.8 Other abnormality of red blood cells (principal)
CPT/HCPCS: 36415; 83020; 85014; 85018; 85041

== ENCOUNTER 2023-12-17 16:15 | Outpatient (REF) | payer BC, SELFPAY | END 2023-12-17 16:16 | disposition home or self-care (01) | LOC: HO.CHCLNP 16:15 | PROVIDERS: Visit Provider Family Medicine | DX: R10.32 Left lower quadrant pain (principal) | CPT/HCPCS: 87086 ==

== ENCOUNTER 2024-01-23 14:50 | Outpatient (AMB) | payer BC, SELFPAY ==
[2024-01-23 14:51] VITALS: BP 114/70; PULSE 79; BMI 25.4
--- NOTE | 2024-01-23 14:51 | A.OFFVIS_ITS ---
Intake Vital Signs 01/23/24 14:51 Height 5 ft 1 in Weight 134 lb 7.712 oz BMI 25.4 BP 114/70 Blood Pressure Location Lt brachial Position Sitting Pulse 79 Pulse Source Pulse Oximeter Intake Visit Reasons: 5 week follow up GERD Intake Note: Pt presents to the office today for a 5 week follow up for GERD. Pt states she is still having bad acid reflux. She states some days are better than others. She states she has been having acid reflux at random times. She also has been trying to avoid certain foods but that isnt helping much either. Allergies No Known Allergies Allergy (Verified 01/23/24 14:53) HPI 5 week follow up GERD HPI Details LAST VISIT Diarrhea Abdominal distension Postprandial abdominal bloating Family history of colitis Plan Will check calprotectin to rule out colitis, Crohn's. Patient can start taking Citrucel 2 tablets daily and take to senna every evening. Patient will also start taking Nexium in the morning half an hour before breakfast. Discussed with patient low FODMAP diet. Patient will also avoid other dietary triggers. Avoid coffee, spicy food. Staying upright for minimum 3 hours after meals discussed with patient. Eating smaller meals and more often. I will see patient in 4 months, sooner on as needed basis. If calprotectin positive patient will need to go for colonoscopy and upper endoscopy. She is agreeable to plan and verbalizes understanding of instructions. She was given the opportunity to ask questions and all questions answered. ? Thank you for allowing me to participate in her care. Orders Orders Calprotectin, Fecal 09/18/23 R19.7, R14.0, Z83.79 Medications New sennosides (Natural Senna Laxative) 17.2 mg (2 x 8.6 mg) PO BEDTIME 60 tabs 3RF constipation K59.00 esomeprazole magnesium (Nexium) 40 mg PO DAILY 30 caps 5RF K21.9 Changed Changed From methylcellulose (laxative) take it with full glass of water 1,000 mg (2 x 500 mg) PO DAILY 60 tabs 2 RF K59.00 Changed To methylcellulose (laxative) (Citrucel) take it with full glass of water 1,000 mg (2 x 500 mg) PO DAILY 60 tabs 2 RF K59.00 TODAY'S VISIT Patient is here today for follow-up. Patient reports that she has been continuing to have epigastric discomfort taking Nexium every day. Her symptoms are worse at night time. Patient reports that she fears burning sometimes acid coming up into her throat. Previous workup negative for H pylori, celiac. Patient tried low FODMAP diet for about 3 months and her symptoms continued. Patient had normal gastric emptying study. Patient reports that she has bouts of loose stools 2 to 3 times a day in the last few weeks. Negative CRP, negative calprotectin. Patient states that she ran out of Citrucel few weeks ago. Continues to take senna in the evening. Patient reports that she was on sucralfate and found that it was helpful. Patient denies any nausea or vomiting. Reports that now epigastric pain PFSH Medical History GERD (gastroesophageal reflux disease) Family history of hypertension Underweight Allergic rhinitis Family History Mother No problems noted. Father Asthma Maternal Grandfather Essential hypertension Social History Housing: House Alcohol intake: current Alcohol intake frequency: holidays/special occasions only Alcohol type: beer, wine and hard liquor Patient Tobacco Use Status: Never used Tobacco e-Cigarette/Vaping Use: Never Used service: No Current occupational status: employed Cognitive needs: No Hearing needs: No Vision needs: No Review of Systems Const Denies weight gain and Denies weight loss ENT Reports no additional complaints, Denies dysphagia and Denies odynophagia Card Reports no additional complaints Resp Reports no additional complaints GI Denies abdominal pain, Denies belching, Denies melena, Denies bloating, Denies change in bowel habits, Denies dysphagia, Denies excessive flatus, Denies dyspepsia, Denies heartburn, Denies diarrhea, Denies loose stools, Denies nausea, Denies odynophagia and Denies vomiting Musc Reports no additional complaints Neuro Reports no additional complaints Psych Reports no additional complaints Endo Reports no additional complaints Physical Exam Vital Signs: Last Vital Signs Pulse 79 01/23/24 14:51 BP 114/70 01/23/24 14:51 BMI result Body Mass Index 25.4 Const General: healthy appearing, no acute distress and well developed Nutritional Appearance: well nourished Orientation/consciousness: patient oriented x3 Resp Effort & Inspection: normal respiratory effort, able to speak in complete sentences, no tracheal deviation and symmetric chest movement Auscultation: clear to auscultation bilaterally Cardio Rate: regular rate GI Inspection: Yes normal to inspection and No distended Palpation (GI): Soft to palpation, not firm, nontender and No hepatosplenomegaly present Auscultation: normal bowel sounds General: Yes no CVA tenderness Back/Spine/Pelvis Back: no CVA tenderness Skin General skin exam: elasticity normal, turgor normal and dry skin Neuro General: patient oriented x3 Psych Appearance: grossly normal Mental Status: mental status grossly normal Assessment & Plan Assessment & Plan (1) Diarrhea: Code(s): R19.7 - Diarrhea, unspecified Qualifiers: Diarrhea type: functional diarrhea Qualified Code(s): K59.1 - Functional diarrhea (2) Abdominal distension: Code(s): R14.0 - Abdominal distension (gaseous) (3) Postprandial abdominal bloating: Code(s): R14.0 - Abdominal distension (gaseous) (4) Family history of colitis: Code(s): Z83.79 - Family history of other diseases of the digestive system Plan Patient will start taking sucralfate in the evening and will start taking Citrucel 1-2 tablets daily. Continue avoiding dietary triggers and late night snacking. Patient also reports having pelvic pain and burning with urination. Will send her for UA and await for culture to treat. If patient will continue with symptoms we will send her for colonoscopy. I will see patient in 4 months, sooner on as needed basis. Patient is agreeable to this plan and verbalizes understanding of instructions. She was given the opportunity to ask questions and all questions answered. Thank you for allowing me to participate in her care Orders: Orders UA CC w/rflx Micro + Cult 01/23/24 R30.9 - Painful micturition, unspecified Medications: New sucralfate 1 g PO BEDTIME 30 tabs 4RF R19.7 - Diarrhea, unspecified methylcellulose (laxative) (Citrucel) 500 mg PO BID 60 tabs 2RF constipation Discontinued methylcellulose (laxative) take it with full glass of water Discontinued Reason: Doctor's Order 1,000 mg (2 x 500 mg) PO DAILY 60 tabs 2RF K59.00 - Constipation, unspecified Coding Level of Care Code Est Pt Level 4 (64183) Diagnoses Functional diarrhea K59.1 Diarrhea type: functional diarrhea Abdominal distension R14.0 Postprandial abdominal bloating R14.0 Family history of colitis Z83.79 Time Spent (min) 35 Comment 20 minutes spent with patient and additional 15 minutes spent reviewing her records
== END 2024-01-23 15:16 | disposition home or self-care (01) ==
PROVIDERS: PCP Internal Medicine; Visit Provider Nurse Practitioner Family
DX: K59.1 Functional diarrhea (principal); R14.0 Abdominal distension (gaseous); Z83.79 Family history of other diseases of the digestive system
CPT/HCPCS: 99214

== ENCOUNTER → 2024-01-23 14:50 | Outpatient (BNVA) | payer BC, SELFPAY | PROVIDERS: PCP Internal Medicine; Visit Provider Nurse Practitioner Family ==

== ENCOUNTER 2024-05-26 10:30 | Outpatient (AMB) | payer BC, SELFPAY ==
--- NOTE | 2024-05-26 10:34 | A.OFFVIS_ITS ---
Vital Signs 05/26/24 10:39 Height 5 ft 1 in Weight 130 lb 1.164 oz BMI 24.6 BP 112/56 L Blood Pressure Location Rt brachial Position Sitting Pulse 74 Pulse Source Pulse Oximeter Pulse Oximetry (%) 98 Oxygen Delivery Method Room Air Intake Visit Reasons: Discuss colonoscopy Intake Note: Parul presents in office today for a scheduled FUV CC; Parul is here to discuss a possible colo s/p. Pt was rx'd sucralfate and citrucel at their last visit. UA order incomplete from last visit. Pt reports that they have not seen a great difference or improvement. Pt states that they are still seeing irregularities, including bloating and pressure . Pt states that they have ensured that they are taking the medication as instructed. Pt is also curious regarding any additional tests or options that can be explored to further investigate or determine what is causing her sx. Allergies No Known Allergies Allergy (Verified 05/26/24 10:35) HPI HPI Discuss colonoscopy: Details: LAST VISIT: Diarrhea Abdominal distension Postprandial abdominal bloating Family history of colitis Plan Patient will start taking sucralfate in the evening and will start taking Citrucel 1-2 tablets daily. Continue avoiding dietary triggers and late night snacking. Patient also reports having pelvic pain and burning with urination. Will send her for UA and await for culture to treat. If patient will continue with symptoms we will send her for colonoscopy. I will see patient in 4 months, sooner on as needed basis. Patient is agreeable to this plan and verbalizes understanding of instructions. She was given the opportunity to ask questions and all questions answered. ? Thank you for allowing me to participate in her care Orders Orders UA CC w/rflx Micro + Cult 01/23/24 R30.9 Medications New sucralfate 1 g PO BEDTIME 30 tabs 4RF R19.7 methylcellulose (laxative) (Citrucel) 500 mg PO BID 60 tabs 2RF constipation Discontinued methylcellulose (laxative) take it with full glass of water Discontinued Reason: Doctor's Order 1,000 mg (2 x 500 mg) PO DAILY 60 tabs 2RF K59.00 TODAY'S VISIT Patient is here today for follow-up and to discuss going for colonoscopy. Patient continues postprandial loose stools. Little better since last seen. Patient is taking sucralfate at bedtime and her symptoms of acid reflux are suppressed for the most part. Occasional acid reflux and nausea. Patient continues to have postprandial abdominal bloating depending on what she eats. Was given Citrucel and was taking it twice a day, became constipated. Script for Dulcolax sent. Patient reports that she is able to move her bowels and feels like she empties them well. Patient denies any abdominal pain, reports however cramping before bowel movement. Patient denies any issues with anesthesia in the past. Not on any anticoagulation medication. No history of sleep apnea [facility] Medical History GERD (gastroesophageal reflux disease) Family history of hypertension Underweight Allergic rhinitis Family History Mother No problems noted. Father Asthma Maternal Grandfather Essential hypertension Social History Housing: House Alcohol intake: current Alcohol intake frequency: holidays/special occasions only Alcohol type: beer, wine and hard liquor Patient Tobacco Use Status: Never used Tobacco e-Cigarette/Vaping Use: Never Used service: No Current occupational status: employed Cognitive needs: No Hearing needs: No Vision needs: No Review of Systems Const Denies weight gain and Denies weight loss ENT Reports no additional complaints, Denies dysphagia and Denies odynophagia Card Reports no additional complaints Resp Reports no additional complaints GI Denies abdominal pain, Denies belching, Denies melena, Reports bloating, Denies change in bowel habits, Denies dysphagia, Denies excessive flatus, Denies dyspepsia, Reports heartburn (Occasional), Denies diarrhea, Reports loose stools, Denies nausea, Denies odynophagia and Denies vomiting Reports no additional complaints Musc Reports no additional complaints Neuro Reports no additional complaints Psych Reports no additional complaints Endo Reports no additional complaints Physical Exam Vital Signs: Last Vital Signs Pulse 74 05/26/24 10:39 BP 112/56 L 05/26/24 10:39 Pulse Ox 98 05/26/24 10:39 Oxygen Delivery Method Room Air 05/26/24 10:39 BMI result Body Mass Index 24.6 Const General: healthy appearing, no acute distress and well developed Nutritional Appearance: well nourished Orientation/consciousness: patient oriented x3 Resp Effort & Inspection: normal respiratory effort, able to speak in complete sentences, no tracheal deviation and symmetric chest movement Auscultation: clear to auscultation bilaterally Cardio Rate: regular rate GI Inspection: Yes normal to inspection and No distended Palpation (GI): Soft to palpation, not firm, nontender and No hepatosplenomegaly present Auscultation: normal bowel sounds General: Yes no CVA tenderness Back/Spine/Pelvis Back: no CVA tenderness Skin General skin exam: elasticity normal, turgor normal and dry skin Neuro General: patient oriented x3 Psych Appearance: grossly normal Mental Status: mental status grossly normal Assessment & Plan Assessment & Plan (1) GERD (gastroesophageal reflux disease): Code(s): K21.9 - Gastro-esophageal reflux disease without esophagitis Category: Medical Qualifiers: Esophagitis presence: with esophagitis Esophagitis bleeding: without hemorrhage Qualified Code(s): K21.00 - Gastro-esophageal reflux disease with esophagitis, without bleeding (2) Diarrhea: Code(s): R19.7 - Diarrhea, unspecified Qualifiers: Diarrhea type: functional diarrhea Qualified Code(s): K59.1 - Functional diarrhea (3) Abdominal distension: Code(s): R14.0 - Abdominal distension (gaseous) (4) Postprandial abdominal bloating: Code(s): R14.0 - Abdominal distension (gaseous) (5) Family history of colitis: Code(s): Z83.79 - Family history of other diseases of the digestive system Plan Continue avoiding dietary triggers and late night snacking. Patient continue to have postprandial loose stools even though she feels like she empties her bowels better now with Dulcolax. Family history of colitis. Patient will be sent for diagnostic colonoscopy. What to expect before during and after procedure discussed with patient. Stressed the importance clear liquid diet and good bowel prep day before procedure. I will see her after the procedure, sooner on as needed basis. Patient is agreeable to this plan and verbalizes understanding of instructions. She was given the opportunity to ask questions and all questions answered. Thank you for allowing me to participate in her care Medications: New famotidine (Pepcid) 20 mg PO DAILY 30 tabs 3RF K21.9 - Gastro-esophageal reflux disease without esophagitis polyethylene glycol 3350 (Miralax) As directed by gastroenterology department at [facility] 238 grams PO ONCE 238 grams 0RF Z12.11 - Encounter for screening for malignant neoplasm of colon On Hold esomeprazole magnesium (Nexium) Hold Comment: Doctor's Order 40 mg PO DAILY 30 caps 5RF K21.9 - Gastro- esophageal reflux disease without esophagitis Coding Level of Care Code Est Pt Level 3 (79134) Diagnoses Gastroesophageal reflux disease with esophagitis without hemorrhage K21.00 Esophagitis presence: with esophagitis Esophagitis bleeding: without hemorrhage Functional diarrhea K59.1 Diarrhea type: functional diarrhea Abdominal distension R14.0 Postprandial abdominal bloating R14.0 Family history of colitis Z83.79 Time Spent (min) 30 Comment 20 minutes spent with patient and additional 10 minutes spent reviewing her records
[2024-05-26 10:39] VITALS: BP 112/56; PULSE 74; O2SAT 98; BMI 24.6
== END 2024-05-26 12:41 | disposition home or self-care (01) ==
PROVIDERS: PCP Internal Medicine; Visit Provider Nurse Practitioner Family
DX: K21.00 Gastro-esophageal reflux disease with esophagitis, without bleeding (principal); K59.1 Functional diarrhea; R14.0 Abdominal distension (gaseous); Z83.79 Family history of other diseases of the digestive system
CPT/HCPCS: 99213

== ENCOUNTER → 2024-05-26 10:30 | Outpatient (BNVA) | payer BC, SELFPAY | PROVIDERS: PCP Internal Medicine; Visit Provider Nurse Practitioner Family ==

== ENCOUNTER 2024-05-28 11:56 | Day surgery (SDC) | payer BC, SELFPAY ==
--- NOTE | 2024-05-27 14:53 | P.CONAN_ITS ---
Documented by User: Elizabeth Gonzalez NP 05/27/24 14:53 HPI - Anesthesia Eval Consult details Narrative: 28yo F for Colonoscopy [facility] Active Problems Active Problems: All Active Problems Low vitamin D level (Acute) Asthma (Acute) Adult general medical exam (Acute) GERD (gastroesophageal reflux disease) (Acute) Family history of hypertension (Acute) Underweight (Acute) Allergic rhinitis (Acute) Past Medical History Medical History GERD (gastroesophageal reflux disease) Family history of hypertension Underweight Allergic rhinitis Family History Family History Mother No problems noted. Father Asthma Maternal Grandfather Essential hypertension Family history of problems with anesthesia: No Surgical History History of Problems with Anesthesia: No Social History Social History Housing: House Alcohol intake: current Alcohol intake frequency: holidays/special occasions only Alcohol type: beer, wine and hard liquor Patient Tobacco Use Status: Never used Tobacco e-Cigarette/Vaping Use: Never Used Are you DNR?: No Advance Directives: No Advance Directives Information Provided: Yes Patient : No FDLMP: ONE MTH AGO service: No Current occupational status: employed Cognitive needs: No Hearing needs: No Vision needs: No Meds Allergies Allergy/AdvReac Type Severity Reaction Status Date / Time No Known Allergies Allergy Verified 05/26/24 10:35 Home Medications ?Medication ?Instructions ?Recorded ?Confirmed ?Last Taken ?Type propranolol 80 mg capsule,24 80 mg PO DAILY 05/26/24 Unknown History hr,extended release sumatriptan succinate 50 mg tablet mg PO 05/26/24 Unknown History Assessment and Plan Assessment Anesthesia Assessment: Chart Reviewed Final Anesthetic Review Family History of Problems with Anesthesia: No History of Problems with Anesthesia: No Documented by User: Deonna Lemons MD 05/28/24 13:20 [facility] Past Medical History Medical History GERD (gastroesophageal reflux disease) Family history of hypertension Underweight Allergic rhinitis Family History Family History Mother No problems noted. Father Asthma Maternal Grandfather Essential hypertension Social History Social History Housing: House Alcohol intake: current Alcohol intake frequency: holidays/special occasions only Alcohol type: beer, wine and hard liquor Patient Tobacco Use Status: Never used Tobacco e-Cigarette/Vaping Use: Never Used Are you DNR?: No Advance Directives: No Advance Directives Information Provided: Yes Patient : No FDLMP: ONE MTH AGO service: No Current occupational status: employed Cognitive needs: No Hearing needs: No Vision needs: No Meds Allergies Allergy/AdvReac Type Severity Reaction Status Date / Time No Known Allergies Allergy Verified 05/26/24 10:35 Home Medications ?Medication ?Instructions ?Recorded ?Confirmed ?Last Taken ?Type propranolol 80 mg capsule,24 80 mg PO DAILY 05/26/24 Unknown History hr,extended release sumatriptan succinate 50 mg tablet mg PO 05/26/24 Unknown History Exam Airway Mallampati Class: II TM Dist: >3cm Neck ROM: Full Loose/Missing/Broken Teeth: No Heart: RRR Lungs: CTA Assessment and Plan Assessment Anesthesia Assessment: Anesthesia Plan Discussed Final Anesthetic Review NPO: Yes ASA Class: II Final Preanesthetic Review: Meds/Allgs Chart Reviewed, Consent Obtained/Reviewed and Anes Risks/Benef Reviewed Patient Risk: Low Procedure Risk: Intermediate Anesthetic Plan Anesthetic Plan: MAC: Disposition: Standard PACU
[2024-05-28 12:14] VITALS: BP 111/76; PULSE 77; RESP 18; TEMP 36.9; O2SAT 98; BMI 24.7
[2024-05-28 12:34] LABS: UPreg QC Valid YES; Urine Pregnancy NEGATIVE (NEGATIVE)
[2024-05-28] MEDS: Lactated Ringers 1,000 ML 100 ML IVCONT (12:34)
--- NOTE | 2024-05-28 13:15 | MHC.SHP ---
Pre-Procedural Eval Section A - 24 Hr Update-Section A only Date of Service: 05/28/24 Section B - Complete if H&P > 30 days Chief Complaint: Abdominal distension,diarrhea,hx digestive system Details of Present Illness: dysphagia Relevant Family History (Specify if Yes): No Relevant Social History: None Present Medications: see Short Stay Collaborative assessment Medical History: Significant History (GERD (gastroesophageal reflux disease) Family history of hypertension Underweight Allergic rhinitis) History of Previous Operations: Relevant previous surgery/procedure and date(s) (egd) Allergies: Allergies Allergy/AdvReac Type Severity Reaction Status Date / Time No Known Allergies Allergy Verified 05/26/24 10:35 Review of Systems Sugical H&P ROS: Negative: Constitution, Cardiovascular, Respiratory, Neurological, Psychiatric, Hem-Onc, Allergic/Immunologic, Gastrointestinal, Genitourinary, Musculoskeletal, Integumentary, Endocrine and Eyes/Ears/Nose/Throat Exam Surgical H&P Exam: Normal: HEENT, Normal: Heart, Normal: Lungs, Normal: Extremities, Normal: Abdomen, Normal: Skin and Normal: Neurological Plan Diagnosis/Plan: Unchanged I have reviewed the history and physical and performed a pertinent physical examination on my patient. No changes have occurred unless specified. EGD added due to dysphagia and nausea Time Spent With Patient Time: Total time managing care of this patient today ____ minutes.
--- NOTE | 2024-05-28 14:00 | P.OPN-COLO_ITS ---
Colonoscopy Operative Note Operative Note Date of Service: 05/28/24 Narrative: Operative Information Procedure Description: EGD, Colonoscopy Indication: dysphagia, diarrhea Anesthesia: MAC FLEXIBLE TRANSORAL UPPER GASTROINTESTINAL ENDOSCOPY AND COLONOSCOPY PROCEDURE NOTE UPPER ENDOSCOPY Consent: Indications for the procedure and potential complications of bleeding, perforation, reaction to medications and missed diagnosis were discussed with the patient and informed consent was obtained. Instrument: Olympus GIF H 190 J mid size upper endoscope Monitoring: Vital signs and clinical assessment, continuous EKG monitoring, Pulse oximetry, Carbon Dioxide monitoring and blood pressure monitoring were done throughout the procedure. Procedure: The patient was placed in the left lateral decubitis position and pre-procedure medications were administered and a bite block was placed. The endoscope was inserted into the mouth and advanced under direct vision to the third part of duodenum. A careful inspection was made as the upper endoscope was withdrawn including a retroflexed examination of the proximal stomach; Findings and interventions are described below. Findings: Larynx:normal Esophagus: GE junction at 36 cm, diaphragm hiatus at 36 cm, normal mucosa, bx taken from GEj, distal and proximal esophagus --balloon dilation of upper and lower esophagus to 20 mm Stomach: mild erythema. Biopsies were obtained. Grade 2 flap valve on retroflexed examination of the cardia. Duodenum: Normal bulb and descending duodenum, bx taken Intervention: Biopsies as noted above, COLONOSCOPY Instrument: Olympus variable stiffness pediatric scope 190L Colonoscopy Monitoring: Vital signs and clinical assessment, continuous EKG monitoring, Pulse oximetry, Carbon Dioxide monitoring and blood pressure monitoring were done throughout the procedure. Colon withdrawal time was 6 minutes. Procedure: The patient was placed in the left lateral decubitis position and pre-procedure medications were administered. After a digital rectal examination of the ano-rectum, the video colonoscope was inserted into the rectum and advanced through the colon to the cecum/TI. The colonoscope was slowly withdrawn in a retrograde panoramic fashion and the colon mucosa was carefully examined including a retroflexed view of the rectum. Findings and interventions are described below. Procedure Difficulty:moderate Findings: Terminal Ileum-normal, bx taken Bx taken from right and left colon, rectum in separate jars Cecum:normal Ascending Colon: normal Transverse Colon -normal Descending Colon:normal Sigmoid Colon: normal Rectum: Retroflexion with small internal hemorrhoids, grade I Anorectum - normal Colon preparation: [place] Bowel Preparation Scale Right colon; 2 Transverse colon: 2 Left colon; 2 (0 = Unprepared colon segment with mucosa not seen due to solid stool that cannot be cleared. 1 = Portion of mucosa of the colon segment seen, but other areas of the colon segment not well seen due to staining, residual stool and/or opaque liquid. 2 = Minor amount of residual staining, small fragments of stool and/or opaque liquid, but mucosa of colon segment seen well. 3 = Entire mucosa of colon segment seen well with no residual staining, small fragments of stool or opaque liquid) Impression and Post Procedure Diagnosis: Endoscopy Findings: mild gastritis Colonoscopy Findings: internal hemorrhoids Plan: Await Pathology results Repeat Colonoscopy in 10 years or earlier if clinically indicated High fiber diet leaflet avoid straining at stool, epsom salts and sitz bath, anusol supps or cream if ongoing dysphagia can consider lennon and manometry Above findings were reviewed with the patient and relevant handouts were provided if indicated.
[2024-05-28 14:02] VITALS: BP 105/66; PULSE 98; RESP 18; TEMP 36.2; O2SAT 100
[2024-05-28 14:17] VITALS: BP 106/72; PULSE 89; RESP 16; TEMP 36.1; O2SAT 98
== END 2024-05-28 15:09 | disposition home or self-care (01) ==
PROVIDERS: Nurse Practitioner; PCP Family Medicine; Visit Provider Internal Medicine Gastroenterology
PROC: (CPT 45380; principal; 2024-05-28 15:00)
DX: K59.1 Functional diarrhea (principal); K64.0 First degree hemorrhoids; R14.0 Abdominal distension (gaseous); Z83.79 Family history of other diseases of the digestive system; K29.60 Other gastritis without bleeding; K22.2 Esophageal obstruction; K21.00 Gastro-esophageal reflux disease with esophagitis, without bleeding; K44.9 Diaphragmatic hernia without obstruction or gangrene; R63.6 Underweight; Z68.24 Body mass index [BMI] 24.0-24.9, adult; Z82.49 Family history of ischemic heart disease and other diseases of the circulatory system; Z79.899 Other long term (current) drug therapy
CPT/HCPCS: 45380; 43249; 43239; 81025; 88305; 88313; 88342; C1726; J2704

== ENCOUNTER → 2024-05-28 11:56 | Outpatient (BNV) | payer BC, SELFPAY | PROVIDERS: PCP Family Medicine; Visit Provider Internal Medicine Gastroenterology | DX: R13.10 Dysphagia, unspecified (principal); K29.70 Gastritis, unspecified, without bleeding; R19.7 Diarrhea, unspecified; K64.0 First degree hemorrhoids | CPT/HCPCS: 43239; 43249; 45380 ==

== ENCOUNTER 2024-06-11 15:30 | Outpatient (AMB) | payer BC, SELFPAY ==
--- NOTE | 2024-06-11 15:38 | A.OFFVIS_ITS ---
Vital Signs 06/11/24 15:39 Height 5 ft 1 in Weight 127 lb 13.89 oz BMI 24.2 BP 108/60 Blood Pressure Location Rt brachial Position Sitting Pulse 64 Pulse Source Pulse Oximeter Pulse Oximetry (%) 98 Oxygen Delivery Method Room Air Intake Visit Reasons: S/P colo Intake Note: Parul presents in office today for a scheduled post op FUV. CC; Pt denies any complications or new concerns post op. Pt is here to discuss the results of the procedure. [employer] Resource [employer]st Required: No Allergies No Known Allergies Allergy (Verified 06/11/24 15:39) HPI HPI S/P colo: Details: LAST VISIT GERD (gastroesophageal reflux disease) Diarrhea Abdominal distension Postprandial abdominal bloating Family history of colitis Plan Continue avoiding dietary triggers and late night snacking. Patient continue to have postprandial loose stools even though she feels like she empties her bowels better now with Dulcolax. Family history of colitis. Patient will be sent for diagnostic colonoscopy. What to expect before during and after procedure discussed with patient. Stressed the importance clear liquid diet and good bowel prep day before procedure. I will see her after the procedure, sooner on as needed basis. Patient is agreeable to this plan and verbalizes understanding of instructions. She was given the opportunity to ask questions and all questions answered. ? Thank you for allowing me to participate in her care Medications New famotidine (Pepcid) 20 mg PO DAILY 30 tabs 3RF K21.9 polyethylene glycol 3350 (Miralax) As directed by gastroenterology department at [facility] 238 grams PO ONCE 238 grams 0RF Z12.11 On Hold esomeprazole magnesium (Nexium) Hold Comment: Doctor's Order 40 mg PO DAILY 30 caps 5RF K21.9 UPPER ENDOSCOPY AND COLONOSCOPY Findings: Larynx:normal Esophagus: GE junction at 36 cm, diaphragm hiatus at 36 cm, normal mucosa, bx taken from GEj, distal and proximal esophagus --balloon dilation of upper and lower esophagus to 20 mm Stomach: mild erythema. Biopsies were obtained. Grade 2 flap valve on retroflexed examination of the cardia. Duodenum: Normal bulb and descending duodenum, bx taken Intervention: Biopsies as noted above, COLONOSCOPY Instrument: Olympus variable stiffness pediatric scope 190L Colonoscopy Monitoring: Vital signs and clinical assessment, continuous EKG monitoring, Pulse oximetry, Carbon Dioxide monitoring and blood pressure monitoring were done throughout the procedure. Colon withdrawal time was 6 minutes. Procedure: The patient was placed in the left lateral decubitis position and pre-procedure medications were administered. After a digital rectal examination of the ano-rectum, the video colonoscope was inserted into the rectum and advanced through the colon to the cecum/TI. The colonoscope was slowly withdrawn in a retrograde panoramic fashion and the colon mucosa was carefully examined including a retroflexed view of the rectum. Findings and interventions are described below. Procedure Difficulty:moderate Findings: Terminal Ileum-normal, bx taken Bx taken from right and left colon, rectum in separate jars Cecum:normal Ascending Colon: normal Transverse Colon -normal Descending Colon:normal Sigmoid Colon: normal Rectum: Retroflexion with small internal hemorrhoids, grade I Anorectum - normal Colon preparation: [place] Bowel Preparation Scale Right colon; 2 Transverse colon: 2 Left colon; 2 (0 = Unprepared colon segment with mucosa not seen due to solid stool that amanda ot be cleared. 1 = Portion of mucosa of the colon segment seen, but other areas of the colon segment not well seen due to staining, residual stool and/or opaque liquid. 2 = Minor amount of residual staining, small fragments of stool and/or opaque liquid, but mucosa of colon segment seen well. 3 = Entire mucosa of colon segment seen well with no residual staining, small fragments of stool or opaque liquid) Impression and Post Procedure Diagnosis: Endoscopy Findings: mild gastritis Colonoscopy Findings: internal hemorrhoids Plan: Await Pathology results Repeat Colonoscopy in 10 years or earlier if clinically indicated High fiber diet leaflet avoid straining at stool, epsom salts and sitz bath, anusol supps or cream if ongoing dysphagia can consider lennon and manometry PATHOLOGY RESULTS Diagnosis A. Duodenum, biopsy: Duodenal mucosa within normal limits; preserved villous architecture and no increased intraepithelial lymphocytes seen. B. Stomach, biopsy: Gastric antral and body mucosa with mild chronic inactive gastritis; negative for Helicobacter pylori, intestinal metaplasia and dysplasia. C. Gastroesophageal junction, biopsy: Squamous mucosa within normal limits; no glandular mucosa seen; negative for inflammation (including intraepithelial eosinophils), fungal organisms and intestinal metaplasia. D. Esophagus, distal, biopsy: Squamous mucosa within normal limits; negative for inflammation (including intraepithelial eosinophils), fungal organisms and intestinal metaplasia. E. Esophagus, proximal, biopsy: Squamous mucosa within normal limits; negative for inflammation (including intraepithelial eosinophils), fungal organisms and intestinal metaplasia. F. Terminal ileum, biopsy: Ileal mucosa within normal limits; negative for active or chronic ileitis. G. Colon, right side, biopsy: Colonic mucosa within normal limits; negative for active, chronic or microscopic colitis. H. Colon, left side, biopsy: Colonic mucosa within normal limits; negative for active, chronic or microscopic colitis. I. Rectum, biopsy: Colonic mucosa within normal limits; negative for active, chronic or microscopic colitis TODAY'S VISIT Patient is here today for follow-up and to discuss upper endoscopy and colonoscopy results. Patient denies any ill effects from the prep, anesthesia or procedure itself. Patient reports that she has been feeling well after the procedure. Nervous about the results. Patient had normal colonoscopy mild hemorrhoids found. Upper endoscopy showed mild gastritis. Patient is currently taking PPI and fade states that her symptoms are controlled for the most part. Patient reports that she is moving her bowels well. Takes fiber supplements and Dulcolax on as needed basis. Patient denies any nausea or vomiting. Denies any melena, hematochezia. Uses dicyclomine on as needed basis. [facility] Medical History GERD (gastroesophageal reflux disease) Family history of hypertension Underweight Allergic rhinitis Family History Mother No problems noted. Father Asthma Maternal Grandfather Essential hypertension Social History Housing: House Alcohol intake: current Alcohol intake frequency: holidays/special occasions only Alcohol type: beer, wine and hard liquor Patient Tobacco Use Status: Never used Tobacco e-Cigarette/Vaping Use: Never Used service: No Current occupational status: employed Cognitive needs: No Hearing needs: No Vision needs: No Review of Systems Const Denies weight gain and Denies weight loss ENT Reports no additional complaints, Denies dysphagia and Denies odynophagia Card Reports no additional complaints Resp Reports no additional complaints GI Denies abdominal pain, Denies belching, Denies melena, Reports bloating, Denies change in bowel habits, Denies dysphagia, Denies excessive flatus, Denies dyspepsia, Reports heartburn (Occasional), Denies diarrhea, Reports loose stools, Denies nausea, Denies odynophagia and Denies vomiting Reports no additional complaints Musc Reports no additional complaints Neuro Reports no additional complaints Psych Reports no additional complaints Endo Reports no additional complaints Physical Exam Vital Signs: Last Vital Signs Pulse 64 06/11/24 15:39 BP 108/60 06/11/24 15:39 Pulse Ox 98 06/11/24 15:39 Oxygen Delivery Method Room Air 06/11/24 15:39 BMI result Body Mass Index 24.2 Const General: healthy appearing, no acute distress and well developed Nutritional Appearance: well nourished Orientation/consciousness: patient oriented x3 Resp Effort & Inspection: normal respiratory effort, able to speak in complete sen tences, no tracheal deviation and symmetric chest movement Auscultation: clear to auscultation bilaterally Cardio Rate: regular rate GI Inspection: Yes normal to inspection and No distended Palpation (GI): Soft to palpation, not firm, nontender and No hepatosplenomegaly present Auscultation: normal bowel sounds General: Yes no CVA tenderness Back/Spine/Pelvis Back: no CVA tenderness Skin General skin exam: elasticity normal, turgor normal and dry skin Neuro General: patient oriented x3 Psych Appearance: grossly normal Mental Status: mental status grossly normal Assessment & Plan Assessment & Plan (1) GERD (gastroesophageal reflux disease): Code(s): K21.9 - Gastro-esophageal reflux disease without esophagitis Category: Medical Qualifiers: Esophagitis bleeding: without hemorrhage Esophagitis presence: with esophagitis Qualified Code(s): K21.00 - Gastro-esophageal reflux disease with esophagitis, without bleeding (2) Diarrhea: Code(s): R19.7 - Diarrhea, unspecified Qualifiers: Diarrhea type: functional diarrhea Qualified Code(s): K59.1 - Functional diarrhea (3) Abdominal distension: Code(s): R14.0 - Abdominal distension (gaseous) (4) Postprandial abdominal bloating: Code(s): R14.0 - Abdominal distension (gaseous) (5) Family history of colitis: Code(s): Z83.79 - Family history of other diseases of the digestive system (6) Status post colonoscopy: Code(s): Z98.890 - Other specified postprocedural states Plan Continue Nexium and sucralfate at bedtime. Avoid dietary triggers and late night snacking. Low FODMAP diet discussed with patient. Increase fiber if loose stools. May use dicyclomine on as needed basis, however that could be also constipating, use Dulcolax on as needed basis. If patient will have abdominal cramping may stop Dulcolax and take MiraLax trouble moving her bowels. Patient will follow-up in 6 months, sooner on as needed basis. She is agreeable to this plan and verbalizes understanding of instructions. She was given the opportunity to ask questions and all questions answered. Thank you for allowing me participate in her care Coding Level of Care Code Est Pt Level 4 (69211) Diagnoses Gastroesophageal reflux disease with esophagitis without hemorrhage K21.00 Esophagitis bleeding: without hemorrhage Esophagitis presence: with esophagitis Functional diarrhea K59.1 Diarrhea type: functional diarrhea Abdominal distension R14.0 Postprandial abdominal bloating R14.0 Family history of colitis Z83.79 Status post colonoscopy Z98.890 Time Spent (min) 35 Comment 20 minutes spent with patient and additional 15 minutes spent reviewing her records
[2024-06-11 15:39] VITALS: BP 108/60; PULSE 64; O2SAT 98; BMI 24.2
== END 2024-06-11 15:54 | disposition home or self-care (01) ==
PROVIDERS: PCP Family Medicine; Visit Provider Nurse Practitioner Family
DX: K21.00 Gastro-esophageal reflux disease with esophagitis, without bleeding (principal); K59.1 Functional diarrhea; R14.0 Abdominal distension (gaseous); Z83.79 Family history of other diseases of the digestive system; Z98.890 Other specified postprocedural states
CPT/HCPCS: 99214

== ENCOUNTER → 2024-06-11 15:30 | Outpatient (BNVA) | payer BC, SELFPAY | PROVIDERS: PCP Family Medicine; Visit Provider Nurse Practitioner Family ==

== ENCOUNTER 2024-09-08 15:35 | Emergency (ER) | payer BC, SELFPAY ==
--- NOTE | ~2024-09-08 | US_ITS ---
EXAMINATION: US PELVIS CLINICAL INFORMATION: Right lower quadrant pain COMPARISON: None available. TECHNIQUE: Ultrasound of the pelvis is performed using both transabdominal and transvaginal transducers along with Doppler. Transvaginal imaging is performed due to inadequate visualization transabdominally. FINDINGS: Uterus: The uterus is anteverted and measures 8.0 x 3.8 x 4.5 cm. The double wall endometrial thickness is 9 mm. The uterus is smooth in contour and has normal myometrial echogenicity. No visible fibroid. Adnexa: Both ovaries are visualized. There is normal color flow to the adnexa. There is no ovarian torsion. There is a small amount of free fluid collection. Right ovary measures 4.5 x 3.5 x 3.6 CM for a volume of 30 mL which includes a complex cyst with septations measuring 3.7 cm. Left ovary measures 3.3 x 1.9 x 2.5 cm for a volume of 8.2 mL which includes a 1.7 cm corpus luteal cyst. US/US pelvic and transvaginal IMPRESSION: Complex right ovarian cyst with septations. Follow-up ultrasound in 6-12 weeks is recommended. Electronically signed by: Shawn Rosenthal MD 09/08/2024 09:22 PM [facility]
--- NOTE | ~2024-09-08 | US_ITS ---
EXAMINATION: US PELVIS CLINICAL INFORMATION: Right lower quadrant pain COMPARISON: None available. TECHNIQUE: Ultrasound of the pelvis is performed using both transabdominal and transvaginal transducers along with Doppler. Transvaginal imaging is performed due to inadequate visualization transabdominally. FINDINGS: Uterus: The uterus is anteverted and measures 8.0 x 3.8 x 4.5 cm. The double wall endometrial thickness is 9 mm. The uterus is smooth in contour and has normal myometrial echogenicity. No visible fibroid. Adnexa: Both ovaries are visualized. There is normal color flow to the adnexa. There is no ovarian torsion. There is a small amount of free fluid collection. Right ovary measures 4.5 x 3.5 x 3.6 CM for a volume of 30 mL which includes a complex cyst with septations measuring 3.7 cm. Left ovary measures 3.3 x 1.9 x 2.5 cm for a volume of 8.2 mL which includes a 1.7 cm corpus luteal cyst. US/US pelvic ovarian doppler IMPRESSION: Complex right ovarian cyst with septations. Follow-up ultrasound in 6-12 weeks is recommended. Electronically signed by: Shawn Rosenthal MD 09/08/2024 09:22 PM [facility]
[2024-09-08 16:04] VITALS: BP 109/59; PULSE 72; RESP 20; TEMP 37.1; O2SAT 99; BMI 24.6
--- NOTE | 2024-09-08 16:06 | ED.GENADULT ---
HPI - General Adult General Chief complaint: Abdominal Pain Stated complaint: Abdominal Pain Time Seen by Provider: 09/08/24 21:56 Source: patient Limitations: no limitations History of Present Illness ED Provider: Nicole Dao PA-C HPI narrative: Patient is a 29 year old female who presents with complaints of abdominal pain and vomiting x1 day. Patient states it began this morning after she had a BM and has been occurring intermittently throughout the day. When it's happening, it is a 10/10 sharp pain. When it subsides, her pain is 6/10. It began in the lower abdomen and radiated up through the middle of the abdomen to the epigastric region. It then localized to the RLQ. She has had two episodes of nonbloody, nonbilious vomiting. She has not checked for a fever but does currently have chills. She also mentions increased urgency to urinate, but denies dysuria and hematuria. She mentions a history of GERD and other GI issues, but states she has not been able to find a diagnosis at this point. She reports a similar incidence about 1 year ago where they found an ovarian cyst, however she reports this pain is significantly worse than that. Patients menstrual cycle is 5 days late, however she denies chance of . She also denies history of STD, new sexual partners, and blood in stool. Denies trauma to the abdomen and abdominal surgeries. Related Data Home Medications ?Medication ?Instructions ?Recorded ?Confirmed propranolol 80 mg capsule,24 80 mg PO DAILY 05/26/24 hr,extended release sumatriptan succinate 50 mg tablet mg PO 05/26/24 Previous Rx's ?Medication ?Instructions ?Recorded cetirizine 10 mg tablet (Zyrtec) 10 mg PO DAILY PRN allergy 01/15/22 symptoms 90 days #90 tabs acetaminophen 500 mg tablet 1,000 mg (2 x 500 mg) PO QID PRN 03/13/22 (Tylenol Extra Strength) fever or pain #14 tabs albuterol sulfate 90 mcg/actuation 2 puff inhalation Q4-6H PRN 01/18/23 aerosol inhaler (Ventolin HFA) shortness of breath or wheezing #8.5 grams cholecalciferol (vitamin D3) 50 50 mcg PO DAILY #90 tabs 04/16/23 mcg (2,000 unit) tablet esomeprazole magnesium 40 mg 40 mg PO DAILY #30 caps 09/18/23 capsule,delayed release (Nexium) dicyclomine 10 mg capsule 10 mg PO BID PRN for abdominal 11/21/23 pain #180 caps methylcellulose (laxative) 500 mg 500 mg PO BID constipation #60 tabs 01/23/24 tablet (Citrucel) sucralfate 1 gram tablet 1 g PO BEDTIME #30 tabs 01/23/24 bisacodyl 5 mg tablet,delayed 10 mg (2 x 5 mg) PO BEDTIME #60 05/16/24 release (Dulcolax (bisacodyl)) tabs famotidine 20 mg tablet (Pepcid) 20 mg PO DAILY #30 tabs 05/26/24 polyethylene glycol 3350 17 238 g PO ONCE #238 grams 05/26/24 gram/dose oral powder (Miralax) ketorolac 10 mg tablet 10 mg PO Q6H PRN pain #20 tabs 09/09/24 Allergies Allergy/AdvReac Type Severity Reaction Status Date / Time No Known Allergies Allergy Verified 09/08/24 16:06 Review of Systems Review of Systems: Yes all other systems are reviewed and are negative Constitutional: Constitutional: Denies anorexia, Reports chills, Denies fever(s), Denies headache(s) and Denies weakness Eyes: Eyes: Denies change in vision and Denies eye pain ENT: Denies dizziness, Denies headache(s), Denies post nasal drip, Denies tinnitus and Denies sore throat Cardiovascular: Cardiovascular: Denies Abdominal Distension, Denies chest pain, Reports Epigastric Pain, Denies leg edema, Denies palpitations and Denies dyspnea Respiratory: Respiratory: Denies cough, Denies dyspnea and Denies wheezing Gastrointestinal: Gastrointestinal: Reports abdominal pain, Denies melena, Denies bloating, Denies hematochezia, Denies coffee ground emesis, Denies constipation, Denies diarrhea, Reports nausea, Reports vomiting and Denies hematemesis Genitourinary: Genitourinary: Denies hematuria, Denies difficulty voiding, Denies genital lesions, Denies dysuria, Reports urinary urgency and Denies vaginal discharge Musculoskeletal: Musculoskeletal: Denies arthralgias, Denies joint swelling, Denies muscle weakness, Denies numbness and Denies tingling Integumentary/Breasts: Skin/Breast: Denies lesions and Denies rash Neurologic: Denies dizziness, Denies headache(s), Denies numbness, Denies tingling and Denies weakness Psychiatric: Psychiatric: Denies homicidal ideation and Denies suicidal ideation Endocrine: Endocrine: Denies palpitations Allergic/Immunologic: Allergic/Immunologic: Reports GI upset with certain foods and Denies wheezing PMFSH Past Medical History Attestation statement: The following information was validated with the patient. Medical History GERD (gastroesophageal reflux disease) Family history of hypertension Underweight Allergic rhinitis Family History Family History Mother No problems noted. Father Asthma Maternal Grandfather Essential hypertension Social History Social History Housing: House Alcohol intake: current Alcohol intake frequency: holidays/special occasions only Alcohol type: beer, wine and hard liquor Patient Tobacco Use Status: Never used Tobacco Smoked in Last 30 Days: No e-Cigarette/Vaping Use: Never Used Use of substances other than those prescribed or required for medical reasons: No Advance Directives: No Advance Directives Information Provided: No Patient : No service: No Current occupational status: employed Cognitive needs: No Hearing needs: No Vision needs: No Physical Exam ED Vital Signs: Vital Signs - 24 hr 09/08/24 16:04 09/08/24 21:43 09/09/24 00:22 Temperature 98.7 F 97.9 F 97.9 F Pulse Rate 72 73 73 Respiratory Rate 20 18 18 Blood Pressure 109/59 L 101/72 101/72 Pulse Oximetry 99 98 98 Oxygen Delivery Method Room Air Room Air Room Air BMI result Body Mass Index 24.6 Const Orientation/consciousness: patient oriented x3 HENMT Head: Yes normal to inspection, Yes normocephalic and Yes atraumatic Eyes General: appearance normal, both eyes and all related structures Visual Garcia: normal visual garcia by confrontation Alignment and Position: alignment normal Periorbital: periorbital findings normal Eyelids: Yes eyelids normal Conjunctivae: conjunctivae normal Sclerae: sclerae normal Corneas: corneas normal Pupils: Equal, round and reactive pupils present EOM: EOMs intact bilaterally Neck Neck: Yes normal visual inspection, Yes full ROM, Yes no lymphadenopathy and Yes no meningeal signs Chest Chest palpation & inspection: normal inspection of the chest Resp Effort & Inspection: normal respiratory effort, able to speak in complete sentences, no audible wheezes and no cough Auscultation: clear to auscultation bilaterally, no rales, no rhonchi and no wheezes GI Inspection: Yes normal to inspection, No abdominal wall ecchymosis and No distended Palpation (GI): Soft to palpation, not firm, nontender, no guarding, not rigid, no hepatomegaly and no splenomegaly General: Yes no CVA tenderness Back/Spine/Pelvis Back: no CVA tenderness Skin Other: warm and dry, no rash General skin exam: no rashes or lesions noted Neuro General: patient oriented x3, moves all extremities, no meningeal signs, no focal motor deficits and CN's II-XI intact bilaterally Cranial nerves: Yes CN's II-XII intact bilaterally, Yes Equal, round and reactive pupils present and Yes Bilaterally intact EOM present Cognition (Neuro): normal cognition Extrem General: Yes normal to inspection and Yes full ROM Psych Other: calm and cooperative Appearance: grossly normal Mental Status: mental status grossly normal Speech and movement: Normal speech and movement present and Clear speech present Affect: normal affect Attitude: cooperative Thought process: Normal thought process present Thought content: Normal thought content present Insight: Good insight present (Psych) Judgement: Good judgement present (Psych) Course Course Course Narrative: RME: 29-year-old female presents to ED for right-sided lower abdominal pain. History of right ovarian cyst. Positive for right lower quadrant tenderness on palpation. Labs ordered and Ultrasound ordered Medications Administered Discontinued Medications Generic Name Dose Route Start Last Admin Trade Name Sarika PRN Reason Stop Dose Admin Ketorolac Tromethamine 30 mg 09/08/24 23:34 09/09/24 00:06 Ketorolac Tromethamine 30 Mg/Ml Vial IM 09/08/24 23:35 30 mg ONCE ONE Administration Ondansetron HCl 4 mg 09/08/24 21:40 09/08/24 21:47 Ondansetron Odt 4 Mg Tab.Rapdis TRANSLINGU 09/08/24 21:41 4 mg ONCE STA Administration Medical Decision Making Medical Decision Making [facility] Narrative: I Nicole Dao PA-C have personally assessed the manage the patient,Kati MORFIN observed and how to formulate documentation Patient is a 29 year old female who presents with complaints of abdominal pain and vomiting x1 day. Patient states it began this morning after she had a BM and has been occurring intermittently throughout the day. When it's happening, it is a 10/10 sharp pain. When it subsides, her pain is 6/10. It began in the lower abdomen and radiated up through the middle of the abdomen to the epigastric region. It then localized to the RLQ. She has had two episodes of nonbloody, nonbilious vomiting. She has not checked for a fever but does currently have chills. She also mentions increased urgency to urinate, but denies dysuria and hematuria. She mentions a history of GERD and other GI issues, but states she has not been able to find a diagnosis at this point. She reports a similar incidence about 1 year ago where they found an ovarian cyst, however she reports this pain is significantly worse than that. Patients menstrual cycle is 5 days late, however she denies chance of . She also denies history of STD, new sexual partners, and blood in stool. Denies trauma to the abdomen and abdominal surgeries. PMH: GERD, ovarian cyst DDx: ectopic , ovarian cyst, IBS, IBD, UTI, nephrolithiasis, pyelonephritis, appendicitis, gastroenteritis, bowel obstruction Plan: As the patient has pain in the lower abdomen, is of childbearing age, and is sexually active, it is possible she has an ectopic . Will assess with hCG. She also has a history of ovarian cysts, and her pain could be due to this as well. Will assess with TVUS. It is also possible patient has a UTI, as she has increased urgency to urinate, lower abdominal pain, and chills. However, she denies dysuria and hematuria. Will rule out with UA. Thought about appendicitis, however as the pain is intermittent, I think it is more likely to be something else. Will assess with CBC and US. Also considered gastroenteritis, as she has abdominal pain, vomiting, and chills. Patient denies sick contacts. Will rule out other causes first. Considered pyelonephritis as well, however patient has no CVA tenderness, is afebrile, and denies dysuria/hematuria, therefore I think this is unlikely as well. Will assess with CBC and UA. Also considered nephrolithiasis, as the pain was diffuse across the abdomen and is accompanied with nausea. Given the lack of hematuria and pain now being localized to the RLQ, I think this is unlikely. Will assess with UA. Given her ongoing GI complaints, I considered IBS, however the patient denies constipation or diarrhea at this time. Also considered IBD, however she denies bloody diarrhea, weight loss, and fatigue. Will rule out other causes first. Bowel obstruction was considered, however patient denies constipation and abdominal distension. Will rule out other causes first. Per Nicole Dao PA-C Screening labs, transvaginal ultrasound were ordered from triage. The patient's pain is more pelvic in origin versus intra-abdominal, I am in agreement with this, I do not believe she requires a CT scan. I have independently reviewed the following tests: Labs: Leukocytosis, not anemic, no electrolyte abnormality, not , urine not infected Transvaginal ultrasound: US/US pelvic and transvaginal IMPRESSION: Complex right ovarian cyst with septations. Follow-up ultrasound in 6-12 weeks is recommended. Electronically signed by: Shawn Rosenthal MD 09/08/2024 09:22 PM [facility] Lab Data 09/08/24 18:06 09/08/24 18:06 Labs: Lab Results 09/08/24 Range/Units 18:06 WBC 13.9 H (4.8-10.8) X10*3/uL RBC 5.11 (4.20-5.50) X10*6/uL Hgb 13.5 (12.0-16.0) g/dl Hct 41.5 (37.0-47.0) % MCV 81.2 (80.0-98.0) fL MCH 26.4 L (27.0-33.0) pg MCHC 32.5 (31.0-35.0) g/dl RDW 13.0 (11.0-16.0) % Plt Count 321 D (160-400) X10*3/uL MPV 10.4 (9.4-12.3) fL Immature Gran % (Auto) 1.2 H (0.0-0.4) % Neut % (Auto) 67.9 (45-73) % Lymph % (Auto) 23.9 (20-40) % Clare % (Auto) 5.0 (2-11) % Eos % (Auto) 1.4 (0-4) % Baso % (Auto) 0.6 (0-2) % Lymph # (Auto) 3.3 (1.2-4.9) X10*3/uL Clare # (Auto) 0.7 (0.1-1.2) X10*3/uL Eos # (Auto) 0.2 (0.0-0.4) X10*3/uL Baso # (Auto) 0.1 (0.0-0.2) X10*3/uL Abs Immat Gran (auto) 0.17 H (0.00-0.03) X10*3/uL Absolute Neuts (auto) 9.5 H (2.0-8.3) x10*3/uL Absolute Nucleated RBC 0.000 (0.0-0.012) X10*3/uL Nucleated RBC % (auto) 0.0 (0.0-0.2) /100WBC PT 12.2 (10.9-12.4) SEC INR 1.0 (0.9-1.1) APTT 31.2 (26.0-36.8) SEC Sodium 140 (135-145) mmol/L Potassium 4.4 D (3.3-5.1) mmol/L Chloride 106 (96-108) mmol/L Carbon Dioxide 23 (22-29) mmol/L Anion Gap 15 (12-20) BUN 8 L (9-16) mg/dL Creatinine 0.62 (0.5-1.4) mg/dL Estim Creat Clear Calc 112.5 Estimated GFR > 60 Random Glucose 139 H (60-115) mg/dL Calcium 9.7 (8.4-10.2) mg/dL Total Bilirubin 0.3 (0.0-1.0) mg/dL AST 16 (5-31) U/L ALT < 6 (0-31) U/L Alkaline Phosphatase 70 (39-117) U/L Total Protein 7.3 (6.5-8.0) g/dL Albumin 4.5 (3.5-5.0) g/dL Lipase 11 (8-78) U/L Beta HCG, Quant < 2 mIU/mL Urine Color Yellow Urine Appearance Clear Urine pH 7.5 (5.0-9.0) Ur Specific [place] 1.010 (1.005-1.025) Urine Protein Negative (Neg-Trace) mg/dL Urine Glucose (UA) Negative (Negative) mg/dL Urine Ketones Negative (Negative) mg/dL Urine Blood Negative (Negative) Urine Nitrite Negative (Negative) Ur Leukocyte Esterase Small (1+) H (Negative) Urine RBC 0-2 (0-2) /HPF Urine WBC 6-10 H (0-5) /HPF Ur Squamous Epith Cells 3-5 (0-2) /HPF Urine Bacteria Trace (None Seen) Hyaline Casts 0-2 (0-2) /LPF Urine Test NEGATIVE (NEGATIVE) Discharge Plan Discharge Clinical Impression: Cyst of right ovary Patient Disposition: Home, Self-Care Instructions: Ovarian Cyst (ED) Additional Instructions: All of your labs were normal, though transvaginal ultrasound revealed that you have a prominent right ovarian cyst. The recommendation is that you have a repeat transvaginal ultrasound in 6-12 weeks. Call your insurance risk analyst to schedule an appointment. Use the ketorolac as needed for discomfort. Prescriptions: New ketorolac 10 mg tablet 10 mg PO Q6H PRN (Reason: pain) Qty: 20 0RF Rx Instructions: maximum total duration of 5 days from all oral, intranasal, or parenteral formulations. The patient received an intramuscular dose of tramadol in the ER No Action cetirizine [Zyrtec] 10 mg tablet 10 mg PO DAILY PRN (Reason: allergy symptoms) 90 Days Qty: 90 1RF dicyclomine 10 mg capsule 10 mg PO BID PRN (Reason: for abdominal pain) Qty: 180 2RF bisacodyl [Dulcolax (bisacodyl)] 5 mg tablet,delayed release (DR/EC) 10 mg PO BEDTIME Qty: 60 4RF acetaminophen [Tylenol Extra Strength] 500 mg tablet 1,000 mg PO QID PRN (Reason: fever or pain) Qty: 14 0RF albuterol sulfate [Ventolin HFA] 90 mcg/actuation HFA aerosol inhaler 2 puff inhalation Q4-6H PRN (Reason: shortness of breath or wheezing) Qty: 8.5 0RF cholecalciferol (vitamin D3) 50 mcg (2,000 unit) tablet 50 mcg PO DAILY Qty: 90 0RF esomeprazole magnesium [Nexium] 40 mg capsule,delayed release(DR/EC) 40 mg PO DAILY Qty: 30 5RF sucralfate 1 gram tablet 1 g PO BEDTIME Qty: 30 4RF Citrucel 500 mg tablet 500 mg PO BID Qty: 60 2RF sumatriptan succinate 50 mg tablet PO propranolol 80 mg capsule,extended release 24 hr 80 mg PO DAILY famotidine [Pepcid] 20 mg tablet 20 mg PO DAILY Qty: 30 3RF polyethylene glycol 3350 [Miralax] 17 gram/dose powder 238 g PO ONCE Qty: 238 0RF Rx Instructions: As directed by gastroenterology department at [facility] Stand Alone Forms: Work/School Release Interventions: ED Discharge Assessment Last Done: 09/09/24 00:22 Discharge Date/Time: 09/09/24 00:23 Print Language: Nigerian
[2024-09-08 18:13] LABS: MANUAL DIFF FLAG NO
[2024-09-08 18:15] LABS: Appearance Urine Clear; Color Urine Yellow; Glucose Urine UA Negative (Negative); Leukocyte Esterase Urine Small (1+) (Negative); Nitrite Urine Negative (Negative); PH 7.5 (5.0-9.0); UMIC TRIGGER UACC YES; Urine Blood Negative (Negative); Urine Ketones Negative (Negative); Urine Protein Negative (Neg-Trace)
[2024-09-08 18:17] LABS: UPreg QC Valid YES; Urine Pregnancy NEGATIVE (NEGATIVE)
[2024-09-08 18:19] LABS: Bacteria Urine Trace (None Seen); Hyaline Casts Urine 0-2 /LPF (0-2); RBC Urine 0-2 /HPF (0-2); UACC Culture Trigger YES
[2024-09-08 18:20] LABS: Prothrombin Time 12.2 SEC (10.9-12.4)
[2024-09-08 18:23] LABS: Partial Thromboplastin Time 31.2 SEC (26.0-36.8)
[2024-09-08 18:26] LABS: Basophils Absolute Auto 0.1 X10*3/uL (0.0-0.2); Basophils Percent Auto 0.6 % (0-2); Eosinophils Absolute Auto 0.2 X10*3/uL (0.0-0.4); Eosinophils Percent Auto 1.4 % (0-4); Hematocrit 41.5 % (37.0-47.0); Hemoglobin 13.5 g/dl (12.0-16.0); Imm Gran Abs Auto 0.17 X10*3/uL (0.00-0.03); Imm Gran Pct Auto 1.2 % (0.0-0.4); Lymphocytes Absolute Auto 3.3 X10*3/uL (1.2-4.9); Lymphocytes Percent Auto 23.9 % (20-40); Mean Corpuscular HGB Conc 32.5 g/dl (31.0-35.0); Mean Corpuscular Hemoglobin 26.4 pg (27.0-33.0); Mean Corpuscular Volume 81.2 fL (80.0-98.0); Mean Platelet Volume 10.4 fL (9.4-12.3); Monocytes Absolute Auto 0.7 X10*3/uL (0.1-1.2); Neutrophils Absolute Auto 9.5 x10*3/uL (2.0-8.3); Neutrophils Percent Auto 67.9 % (45-73); Platelet Count 321 X10*3/uL (160-400); Red Blood Count 5.11 X10*6/uL (4.20-5.50); White Blood Count 13.9 X10*3/uL (4.8-10.8)
[2024-09-08 18:43] LABS: Alanine Aminotransferase < 6 U/L (0-31); Albumin Level 4.5 g/dL (3.5-5.0); Alkaline Phosphatase 70 U/L (39-117); Anion Gap 15 (12-20); Aspartate Amino Transferase 16 U/L (5-31); Bilirubin Total 0.3 mg/dL (0.0-1.0); Blood Urea Nitrogen 8 mg/dL (9-16); Calcium 9.7 mg/dL (8.4-10.2); Carbon Dioxide 23 mmol/L (22-29); Chloride 106 mmol/L (96-108); Creatinine Clr Calc Pharmacy 112.5; Estimated Glomerular Filt Rate > 60; Glucose Random 139 mg/dL (60-115); HCG Quantitative < 2 mIU/mL; Lipase 11 U/L (8-78); Potassium 4.4 mmol/L (3.3-5.1); Sodium 140 mmol/L (135-145); Total Protein 7.3 g/dL (6.5-8.0)
[2024-09-08 21:43] VITALS: BP 101/72; PULSE 73; RESP 18; TEMP 36.6; O2SAT 98
[2024-09-08] MEDS: Ondansetron ODT 4 MG TAB.RAPDIS TRANSLINGU (21:47)
[2024-09-09] MEDS: Ketorolac Tromethamine 30 MG/ML VIAL IM (00:06)
[2024-09-09 00:22] VITALS: BP 101/72; PULSE 73; RESP 18; TEMP 36.6; O2SAT 98
== END 2024-09-09 00:23 | disposition home or self-care (01) ==
PROVIDERS: Physician Assistant; Emergency Provider Emergency Medicine; PCP Family Medicine
DX: N83.201 Unspecified ovarian cyst, right side (principal); R10.31 Right lower quadrant pain; R11.10 Vomiting, unspecified; R39.15 Urgency of urination
CPT/HCPCS: 36415; 76830; 76856; 80053; 81001; 81025; 83690; 84702; 85025; 85610; 85730; 87086; 93975; 96372; 99284; J1885

== ENCOUNTER 2024-11-24 11:00 | Outpatient (REF) | payer BC, SELFPAY ==
--- NOTE | ~2024-11-24 | US_ITS ---
CLINICAL HISTORY: 29 yo F with L ovarian cyst, needs repeat US in 12 weeks send to [facility] US pelvis transvaginal Comparison: US/SR - US PELVIC OVARIAN DOPPLER - 09/08/24 19:23 EST Findings: Transvaginal scanning performed. Anteverted uterus is 8.5 cm length. Normal myometrium. Incidental nabothian cysts. Endometrium 3 mm thickness. Right ovary 3.2 x 2 x 1.8 cm. Resolution of 3.7 cm complex likely hemorrhagic cyst seen on prior. Left ovary 3.1 x 1.9 x 1.8 cm. No focal abnormality. Doppler flow to the ovaries not directly assessed currently. No free fluid. IMPRESSION: 1. Normal pelvic ultrasound This document has been electronically signed by: Wilder Magana MD on 11/24/2024 12:55:02
== END 2024-11-24 11:01 | disposition home or self-care (01) ==
LOC: HO.US 11:00
PROVIDERS: PCP Family Medicine; Visit Provider Family Medicine
DX: N83.202 Unspecified ovarian cyst, left side (principal)
CPT/HCPCS: 76830; 76856

== ENCOUNTER → 2024-11-24 11:01 | Outpatient (BNV) | payer BC, SELFPAY | PROVIDERS: PCP Family Medicine; Visit Provider Radiology Diagnostic Radiology | DX: N83.292 Other ovarian cyst, left side (principal) | CPT/HCPCS: 76830; 76856 ==

== ENCOUNTER 2025-01-29 15:19 | Outpatient (REF) | payer BC, SELFPAY ==
[2025-01-29 16:19] LABS: HCG Quantitative 12039 mIU/mL
== END 2025-01-29 15:20 | disposition home or self-care (01) ==
LOC: HO.HHCL 15:19
PROVIDERS: Visit Provider Nurse Practitioner
DX: Z32.01 Encounter for pregnancy test, result positive (principal)
CPT/HCPCS: 36415; 84702